=== PATIENT | male | born 1930 | race Caucasian/White ===

== ENCOUNTER → 2017-08-06 | Outpatient (CLI) | payer OTHER ==
[~2017-08-06] MED LIST: AMT50 PO; ASPI81TA28 PO; ATOR-14 PO; CHOL100010 PO; FURO40TA3 PO; IMDSR30 PO; LEVO75TA5 PO; LORA-741 PO; METO50TA16 PO; MULT-506 PO; OMEP20CA9 PO; TAMS0.4C38 PO
--- NOTE | 2017-08-15 09:23 | CODING QUERY MEDICAL NECESSITY ---
SUPPORTING DIAGNOSIS NEEDED A supporting diagnosis is required for the test/procedure performed on this patient in order for us to be reimbursed by the patient's insurance. Please provide a supporting diagnosis for the following test/procedure listed below next to the test name along with your signature. *If there is no additional diagnosis for this patient that would support the following test/procedure please document that below next to the test/procedure. Test(s)/Procedure(s) that require a supporting diagnosis: * PSA DIAGNOSIS: Provider Signature: Date: Thank you Kayla Dawson [employer] Once completed, please kindly fax back to [phone] For questions please call [phone]
== END | disposition home or self-care (01) ==
LOC: C.LAB1850 10:42
PROVIDERS: ATTEND Urology
DX: R39.9 Unspecified symptoms and signs involving the genitourinary system (principal)

== ENCOUNTER → 2017-09-12 | Outpatient (CLI) | payer OTHER ==
[2017-09-12 14:51] LABS: ESTIMATED AVERAGE GLUCOSE 166 mg/dl; HA1C FLAG Normal (Normal)
[2017-09-12 15:15] LABS: BLOOD UREA NITROGEN 16 mg/dl (7-18); BUN/CREATININE RATIO 12.6 (10-20); CALCIUM 8.5 mg/dl (8.5-10.1); CARBON DIOXIDE 27 mmol/L (21-32); CHLORIDE 105 mmol/L (98-107); CREATININE 1.26 mg/dl (0.60-1.40); GLUCOSE 213 mg/dl (70-99); SODIUM 139 mmol/L (136-145)
== END | disposition home or self-care (01) ==
LOC: C.LAB1850 12:49
PROVIDERS: ATTEND Family Medicine
DX: I10 Essential (primary) hypertension (principal); E11.9 Type 2 diabetes mellitus without complications

== ENCOUNTER → 2017-10-24 | Outpatient (CLI) | payer OTHER ==
[2017-10-24 13:44] LABS: CHOLESTEROL/HDL RATIO 2.1
== END | disposition home or self-care (01) ==
LOC: C.LABBFT 09:05
PROVIDERS: ATTEND Physician Assistant
DX: E78.5 Hyperlipidemia, unspecified (principal)

== ENCOUNTER → 2018-01-23 | Outpatient (CLI) | payer OTHER ==
[2018-01-23 12:41] LABS: HEMOGLOBIN A1C 7.4 % (4.5-5.6)
[2018-01-23 12:44] LABS: BLOOD UREA NITROGEN 18 mg/dl (7-18); CALCIUM 8.9 mg/dl (8.5-10.1); CARBON DIOXIDE 28 mmol/L (21-32); CREATININE 1.33 mg/dl (0.60-1.40); GLUCOSE 121 mg/dl (70-99); POTASSIUM 3.6 mmol/L (3.5-5.1); SODIUM 142 mmol/L (136-145)
== END | disposition home or self-care (01) ==
LOC: C.LABBFT 08:32
PROVIDERS: ATTEND Family Medicine
DX: E11.9 Type 2 diabetes mellitus without complications (principal)

== ENCOUNTER → 2018-02-24 | Outpatient (CLI) | payer OTHER ==
[2018-02-24 14:32] LABS: BLOOD UREA NITROGEN 19 mg/dl (7-18); CARBON DIOXIDE 27 mmol/L (21-32); CREATININE 1.18 mg/dl (0.60-1.40); GLUCOSE 164 mg/dl (70-99); POTASSIUM 3.8 mmol/L (3.5-5.1); SODIUM 140 mmol/L (136-145)
== END | disposition home or self-care (01) ==
LOC: C.LAB 10:01
PROVIDERS: ATTEND Nurse Practitioner Adult Health
DX: N45.1 Epididymitis (principal)

== ENCOUNTER → 2018-02-25 | Outpatient (CLI) | payer OTHER ==
--- NOTE | 2018-02-25 11:09 | DIAGNOSTIC IMAGING REPORT ---
(TESTICULAR) SCROTUM-CONT CLINICAL HISTORY: 87 years-old Male presenting with N45.1 [id number]. TECHNIQUE: Real-time grayscale and color and spectral Doppler ultrasound imaging of the scrotum was performed. COMPARISON: 01/22/2012. FINDINGS: Right testis: Normal echogenicity and echotexture. Testis measures 5.4 x 3.2 x 3.5 cm. Normal color Doppler flow and arterial and venous waveforms in the testicular parenchyma. 5 mm anechoic epididymal head cyst versus spermatocele. Trace hydrocele. No varicocele. Left testis: Normal echogenicity and echotexture. Testis measures 4.9 x 3.9 x 2.6 cm. Normal color Doppler flow and arterial and venous waveforms in the testicular parenchyma. 5 mm anechoic epididymal head cyst versus spermatocele. The left epididymal body and tail are prominent and hyperemic. Moderate hydrocele, which is simple appearing. No varicocele. Asymmetric hyperemia of the left testis. IMPRESSION: Findings suggest left epididymitis-orchitis. No evidence of testicular torsion. Reactive moderate left hydrocele. Electronically signed by: Rahul Plunkett M.D. 02/25/2018 11:08 AM Dictated Date/Time: 02/25/2018 11:06 AM
== END | disposition home or self-care (01) ==
LOC: C.ULTRBC 09:08
PROVIDERS: ATTEND Nurse Practitioner Adult Health
DX: N45.1 Epididymitis (principal); N43.3 Hydrocele, unspecified

== ENCOUNTER 2018-03-13 18:00 | Emergency (ER) | payer OTHER ==
[~2018-03-13] VITALS: Ht 172.7 cm; Wt 101.0 kg
[2018-03-13 18:10] VITALS: TEMP 36.7; Ht 172.7 cm; Wt 101.0 kg
[2018-03-13 19:55] VITALS: BP 154/100; PULSE 73; O2SAT 94
--- NOTE | 2018-03-13 21:12 | DIAGNOSTIC IMAGING REPORT ---
L VENOUS DOPPLER UPR EXT UNIL HISTORY: 88 years-old Male picc line was in place, pain acute left upper extremity pain with left-sided PICC COMPARISON: Chest radiograph 12/30/2017 TECHNIQUE: Multiple real-time sonographic images of the left upper extremity deep venous structures were obtained assessing grayscale appearance, color and spectral flow FINDINGS: There is normal flow, compressibility, and phasicity of the left upper extremity deep venous structures. IMPRESSION: No sonographic evidence of deep venous thrombosis. The above report was generated using voice recognition software. It may contain grammatical, syntax or spelling errors. Electronically signed by: Cameron Nguyen M.D. 03/13/2018 9:11 PM Dictated Date/Time: 03/13/2018 9:10 PM
[2018-03-13] MEDS ORDERED: ISOS30TA3 PO (22:04)
[2018-03-13] MEDS ORDERED: LYR/50 PO (22:04)
[2018-03-13] MEDS ORDERED: METF500T5 PO (22:04)
[2018-03-13] MEDS ORDERED: ATOR-22 PO (22:04)
[2018-03-13] MEDS ORDERED: JNV100 PO (22:04)
[2018-03-13] MEDS ORDERED: CLOTLOT2 PO (22:04)
[2018-03-13] MEDS ORDERED: CHOL1TAB76 PO (22:04)
[2018-03-13] MEDS ORDERED: LSX20 PO (22:04)
[2018-03-13] MEDS ORDERED: MIRA1TAB3 PO (22:04)
--- NOTE | 2018-03-13 23:33 | EMERGENCY ROOM VISIT NOTE ---
History Report prepared by Ramiro: Javier Meza Under the Supervision of: Dr. Aroldo Barrett M.D. First contact with patient: 19:20 Chief Complaint: ARM PAIN Stated Complaint: INFECTION History of Present Illness The patient is an 88 year old male who presents to the Emergency Room with complaints of constant left arm pain beginning today. The patient states that he was having left testicle swelling and warmth recently, which his urologist believed might be an infection. He notes that he was prescribed an antibiotic that was given to him through a PICC line in his left arm. Today was his last IV dose and it was difficult for the medication to infuse and it did cause some burning-the PICC line was removed after the dose was administered. He reports that he has since been experiencing left arm pain and burning. The patient states that he also came to the emergency department for his testicle. He notes that his left testicle is no longer warm but is still swollen. Source of History: patient Onset: today Position: arm (left) Quality: burning Timing: constant Note: The patient also complains of left testicular swelling. Review of Systems See HPI for pertinent positives & negatives. A total of 10 systems reviewed and were otherwise negative. Past Medical & Surgical Medical Problems: (1) Infection Family History No pertinent family history stated. Social History Smoking Status: Never Smoker Marital Status: Housing Status: lives with family Occupation Status: retired Current/Historical Medications Scheduled Amitriptyline Hcl (Elavil), 20 MG PO HS Aspirin (Aspirin Ec), 81 MG PO DAILY Atorvastatin (Lipitor), 20 MG PO DAILY Cholecalciferol (D 1999), 2,000 UNITS PO DAILY Clotrimazole W/ Betamethasone (Clotrimazole/Betamethason), 1 APPLN PO BID Furosemide (Furosemide), 20 MG PO DAILY Isosorbide Mononitrate Ext Rel (Imdur Ext Rel), 30 MG PO QAM Levothyroxine Sodium (Levothyroxine Sodium), 1 TAB PO DAILY Metformin Hcl Er (Glucophage Er), 500 MG PO BID Metoprolol Tartrate (Lopressor) (Lopressor), 75 MG PO BID Mirabegron (Myrbetriq Er), 50 MG PO DAILY Omeprazole (Prilosec), 20 MG PO DAILY Pregabalin (Lyrica), 50 MG PO TID Sitagliptin (Januvia), 100 MG PO DAILY Tamsulosin Hcl (Flomax), 0.4 MG PO DAILY Scheduled PRN Lorazepam (Ativan), 0.5 MG PO BID PRN for Anxiety/Agitation Allergies Coded Allergies: No Known Allergies (Verified , 02/27/18) Physical Exam Vital Signs Date Time Temp Pulse Resp B/P (MAP) Pulse Ox O2 Delivery O2 Flow Rate FiO2 03/13/18 21:35 03/13/18 19:55 73 22 154/100 94 Room Air 03/13/18 18:10 36.7 74 18 154/90 94 Room Air Physical Exam GENERAL: Patient is in no acute distress. HEENT: No acute trauma, normocephalic atraumatic, mucous membranes moist, no nasal congestion, no scleral icterus. NECK: No stridor, no adenopathy, no meningismus, trachea is midline. LUNGS: Clear to auscultation bilaterally, no wheeze, no rhonchi, breath sounds equal. HEART: 3/6 systolic murmur with a regular rate and rhythm. ABDOMEN: Soft, nontender, bowel sounds positive, no hernias, no peritonitis. EXTREMITIES: No cyanosis, full range of motion of all the joints without pain or difficulty, no signs for acute trauma, obvious left medial bicep PICC line wound without signs of surrounding cellulitis, no cord felt, area is mildly tender, no drainage, mild bilateral pedal edema. NEUROLOGIC: Oriented x 3, no acute motor or sensory deficits, no focal weakness. SKIN: No rash, no jaundice, no diaphoresis. Groin: No scrotal cellulitis or pain with palpation, left testicle larger than right. Medical Decision & Procedures ER Provider Diagnostic Interpretation: Radiology results as stated below per my review and radiologist interpretation: L VENOUS DOPPLER UPR EXT UNIL FINDINGS: There is normal flow, compressibility, and phasicity of the left upper extremity deep venous structures. IMPRESSION: No sonographic evidence of deep venous thrombosis. The above report was generated using voice recognition software. It may contain grammatical, syntax or spelling errors. Electronically signed by: Cameron Nguyen M.D. 03/13/2018 9:11 PM ED Course 1926: The patient was evaluated in room B12. A complete history and physical exam was performed. 2135: Reevaluated the patient. Discussed results and discharge instructions: he verbalized understanding and agreement. The patient is ready for discharge. Medical Decision Differential diagnoses include: upper extremity DVT, cellulitis, vein irritation , scrotal cellulitis, orchitis, and abscess. Patient presents with pain in the area of his left arm PICC line site. On exam , there was no cellulitis, no drainage. An ultrasound of the left upper extremity was done, there was no acute DVT. I did evaluate the patient's scrotum, there is no erythema or evidence for ongoing cellulitis. The left testicle is more swollen than the right. The patient was reassured by his ultrasound results. He will be discharged to keep a watch on the area for the start of cellulitis. He will follow with his urologist for the increased swelling of the left testicle. The patient was discharged home. I suspect the left upper extremity vein is just irritated from the recent PICC line. Blood Pressure Screening Patient's blood pressure: Elevated blood pressure Blood pressure disposition: Referred to PCP Impression Primary Impression: Arm pain, left Additional Impression: S/P PICC central line placement Scribe Attestation The scribe's documentation has been prepared under my direction and personally reviewed by me in its entirety. I confirm that the note above accurately reflects all work, treatment, procedures, and medical decision making performed by me. Departure Information Dispostion Home / Self-Care Referrals Jhonny Moore M.D. (PCP) Forms HOME CARE DOCUMENTATION FORM, IMPORTANT VISIT INFORMATION Patient Instructions My [facility] Additional Instructions warm compresses keep dressing in place for a few days watch for infection--redness, fever, drainage no clot today by ultrasound Problem Qualifiers
== END 2018-03-13 21:36 | disposition home or self-care (01) ==
LOC: C.EDB 18:02
DX: M79.602 Pain in left arm (principal); Z98.890 Other specified postprocedural states; Z79.82 Long term (current) use of aspirin; Z79.899 Other long term (current) drug therapy

== ENCOUNTER → 2018-03-25 | Outpatient (CLI) | payer OTHER ==
[~2018-03-25] MED LIST changes: -ATOR-14 PO; +ATOR-22 PO; -CHOL100010 PO; +CHOL1TAB76 PO; +CLOTLOT2 PO; -FURO40TA3 PO; -IMDSR30 PO; +ISOS30TA3 PO; +JNV100 PO; +LSX20 PO; +LYR/50 PO; +METF500T5 PO; +MIRA1TAB3 PO; -MULT-506 PO
[2018-03-25 16:49] LABS: BLOOD UREA NITROGEN 15 mg/dl (7-18); CALCIUM 8.6 mg/dl (8.5-10.1); CARBON DIOXIDE 27 mmol/L (21-32); CREATININE 1.21 mg/dl (0.60-1.40); GLUCOSE 153 mg/dl (70-99); POTASSIUM 3.7 mmol/L (3.5-5.1); SODIUM 141 mmol/L (136-145)
[2018-03-25 16:53] LABS: CHOLESTEROL 85 mg/dl (0-200); LDL CHOLESTEROL CALCULATED 27 mg/dl
[2018-03-26 06:09] LABS: HEMOGLOBIN A1C 6.3 % (4.5-5.6)
== END | disposition home or self-care (01) ==
LOC: C.LABBFT 11:15
PROVIDERS: ATTEND Family Medicine
DX: E11.69 Type 2 diabetes mellitus with other specified complication (principal); E78.2 Mixed hyperlipidemia

== ENCOUNTER 2018-12-01 12:54 | Inpatient (IN) ==
[2018-12-01] MEDS ORDERED: ACETAMINOPHEN 325 MG TAB PO STA (13:19)
[2018-12-01] MEDS ORDERED: SODIUM CHLORIDE 0.9% 500 ML IV SCH (13:30)
--- NOTE | 2018-12-01 13:38 | Emergency Department Note ---
ED Provider Note CHIEF COMPLAINT: Fever/chills, cough HISTORY OF PRESENTING ILLNESS: This is an 88-year-old male who presents to the emergency department via EMS with complaint of fevers and chills that started yesterday. Patient states that he had some chills and feeling cold yesterday but did not check his temperature at that time. This morning he was feeling better and he went to his physical therapy appointment, but then the chills started to come back and he was found to have a fever. He has been feeling slightly short of breath and has been having a cough which he states is productive at times of a grayish white sputum. He denies coughing up blood. He denies any chest pain, palpitations, dizziness or syncope. Patient's states that she noticed he has also had some dark, foul-smelling urine since yesterday. He reports that he had arthroscopic left shoulder surgery about a month ago, and he states he has been doing very well and the incisions have healed nicely. He does note that he has had a flu shot this year and had a pneumonia shot last year. His states they have been around several sick contacts, mostly with GI symptoms. Neither of them have been sick with those symptoms. Patient denies any nausea, vomiting, or diarrhea. He denies any abdominal pain. Denies any dysuria or hematuria, urinary frequency or hesitancy. Denies any unusual rash. REVIEW OF SYSTEMS: A complete 10 point review of systems was reviewed with the patient with pertinent positives and negatives as per history of present illness. All else were negative. PAST MEDICAL HISTORY: The coronary artery disease, hypertension, type 2 diabetes , hypothyroidism, GERD, hyperlipidemia SOCIAL HISTORY: Lives at home with his , denies tobacco use ALLERGIES: No known allergies PHYSICAL EXAM: CONSTITUTIONAL: Pleasant and cooperative. Nontoxic appearing and in no acute distress. Moderately dehydrated. HEENT: Normocephalic, atraumatic. PERRL, EOMI. TMs normal bilaterally. Pharynx normal. Dry mucous membranes. NECK: Supple, full active range of motion without discomfort. No cervical adenopathy. No nuchal rigidity. RESPIRATORY: Diminished in the bases with fine crackles, otherwise clear with no wheezing, rhonchi, or stridor. Equal expansion bilaterally. CARDIOVASCULAR: Regular rate and rhythm. 3/6 systolic murmur, no rubs or gallops. Normal peripheral perfusion, 2+ distal pulses in all 4 extremities. No edema. GASTROINTESTINAL: Soft, nontender throughout, mildly distended, obese abdomen. No rebound tenderness or guarding. No palpable masses or HSM. Bowel sounds present in all quadrants. No CVA tenderness bilaterally. MUSCULOSKELETAL: Left arm is in a sling. Arthroscopic surgical incisions of the left shoulder appear to be well-healed, no erythema, swelling, tenderness, or drainage. Full range of motion of all joints without discomfort. INTEGUMENTARY: No rash or other significant dermatologic conditions noted. NEUROLOGIC: Alert and oriented X 4 with normal affect. Normal strength and sensation in all 4 extremities. Normal speech. ED COURSE AND MEDICAL DECISION MAKING: CC: Patient presenting with complaint of fever/chills, cough DIFFERENTIAL DIAGNOSIS: Includes, but not limited to viral URI, bronchitis, pneumonia, COPD, CHF exacerbation, UTI, pyelonephritis, influenza, cholecystitis , pancreatitis, sepsis/bacteremia, dehydration, electrolyte abnormality, among others. INTERPRETATION OF LABS: No leukocytosis, no anemia, mild thrombus cytopenia, no significant electrolyte abnormalities, moderately elevated BUN and creatinine ( increased from baseline), significantly elevated total bilirubin and liver enzymes, significant the elevated lipase. Lactic acid is elevated, procalcitonin is elevated. UA appears consistent with UTI. Influenza A/B negative. IMAGING: XR chest 1V portable CLINICAL HISTORY: cough, fever, sob COMPARISON STUDY: 10/30/2018 FINDINGS: The examination was performed in apical lordotic fashion. The study is mildly rotated. There are postsurgical changes of a midline sternotomy. Hazy opacities the left lung base, likely related to radiographic technique. There is no lobar consolidation. There is no overt failure. There are no significant pleural effusions. IMPRESSION: Technically limited portable study. No acute findings. ----- CT ANGIOGRAM OF THE CHEST; CT SCAN OF THE ABDOMEN AND PELVIS WITH IV CONTRAST CLINICAL HISTORY: Cough and dyspnea. Fever. Elevated hepatic transaminases. COMPARISON STUDY: Chest CT dated 07/04/2015. Abdominal CT dated 03/06/2008. Chest x-ray dated 12/01/2018. TECHNIQUE: Following the IV administration of 95 of Optiray 320, CT angiogram of the chest is performed from the upper abdomen to the thoracic inlet utilizing the pulmonary embolus protocol. Images are reviewed in the axial, sagittal, coronal planes. 3-D MIPS images are created and assessed. Subsequently , CT scan of the abdomen and pelvis was performed from the lung bases to the proximal femora. Images are reviewed in the axial, sagittal, and coronal planes. IV contrast was administered without complication. A dose lowering technique was utilized adhering to the principles of ALARA. The examination is degraded by motion artifact, as well as by streak artifact from the arms which could not be elevated above the chest or abdomen. CT DOSE: 1948.54 mGy.cm FINDINGS: CHEST: Thyroid: Atrophic. Thoracic aorta: There is atherosclerotic calcification of the thoracic aorta, which is normal in caliber and demonstrates standard 3-vessel arch anatomy. No dissection is seen. Pulmonary vasculature: The main pulmonary arteries are dilated suggesting pulmonary artery hypertension. There are no filling defects identified in the main, lobar, or proximal segmental pulmonary arteries to indicate pulmonary embolus. Evaluation of the majority of the segmental and subsegmental branches is degraded by motion artifact. Heart: The patient is status post midline sternotomy. The heart is enlarged and without pericardial effusion. The coronary arteries are densely calcified. Lungs and pleural spaces: Evaluation of the lung parenchyma is degraded by motion artifact. Mild emphysematous change is noted. There are trace pleural effusions. There is patchy airspace consolidation at the left lung base. Mild opacities are also seen at the right lung base. The trachea and central airways appear patent. There are scattered calcified granulomas. Mediastinum: There is no mediastinal lymphadenopathy. Janet: Clear. Axillae: There is no axillary lymphadenopathy. Bony thorax: The skeletal structures are heterogeneously osteopenic. Degenerative changes noted in the shoulders and thoracic spine. No lytic or blastic lesions are clearly identified. ABDOMEN AND PELVIS: Liver: The contrast-enhanced liver is normal in size, contour, and attenuation. There is no intrahepatic or ductal dilatation. The hepatic veins and portal veins are patent. Gallbladder: The gallbladder is distended. The gallbladder wall is thickened, edematous, and hyperemic. Pericholecystic stranding is noted in the appearance is consistent with acute cholecystitis. Spleen: Normal in size and attenuation. There are scattered calcified splenic granulomas. Pancreas: Atrophic and grossly unremarkable. Adrenal glands: Unremarkable. Kidneys: The contrast enhanced kidneys are atrophic and without hydronephrosis. The kidneys enhance symmetrically. 2 left renal cysts measure up to 3.4 cm. Abdominal vasculature: The abdominal aorta is normal in course and caliber noting advanced atherosclerotic calcification. Stomach and bowel: There is a small hiatal hernia. The duodenum is normal in configuration. Prominent fluid-filled loops of small bowel in the right mid abdomen measure up to 3.2 cm diameter. There is no evidence of obstruction, and this may represent a mild ileus. A small duodenal diverticulum is noted. There is mild to moderate colonic diverticulosis without CT evidence of acute diverticulitis. Moderate colonic fecal retention is observed. The appendix is well-visualized and normal. Peritoneum: There is no intraperitoneal free air or abdominal ascites. Lymphadenopathy: None. Pelvic viscera: The prostate gland is diminutive and heterogeneous noting brachytherapy seeds in place. The bladder is mildly distended and grossly unremarkable. 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 Skeletal structures: The skeletal structures are heterogeneously osteopenic. There is moderate lumbosacral spondylosis. No lytic or blastic lesions are clearly seen. IMPRESSION: 1. Streak and motion compromised examination. 2. There is no evidence of central pulmonary embolus in the main, lobar, or proximal segmental pulmonary arteries. Evaluation of the peripheral branches is severely compromised by streak and motion artifact. 3. Findings are consistent with acute cholecystitis. Surgical consultation is advised. 4. Cardiomegaly and mild emphysema. 5. There are patchy airspace opacities at both lung bases, left greater than left. The appearance suggests a mild infectious/inflammatory pneumonitis. Clinical correlation will be required. 6. There are mildly distended and fluid-filled loops of small bowel in the right mid abdomen. There is no evidence of mechanical obstruction, and this may represent ileus secondary to cholecystitis. Clinical correlation will be required. 7. Mild to moderate colonic diverticulosis without CT evidence of acute diverticulitis. 8. Additional findings as above. EKG: Shows normal sinus rhythm with rate of 82 bpm, left axis deviation, normal intervals, no acute ST or T wave changes, no ectopy, no significant change when compared to previous EKG from 10/30/2018 by my interpretation. MEDICATION RECONCILIATION: I attest that I have personally reviewed the patient 's current medication list. INITIAL VITAL SIGNS REVIEW: I reviewed the patient's initial vital signs and interpret them as follows: T: Febrile; BP: Normotensive; HR: Mildly tachycardic; RR: Within normal limits; Pulse Ox: Hypoxic on room air. Blood pressure screening: The patient was found to have normal blood pressure on screening and does not require follow-up for repeat blood pressure check. MDM SUMMARY: Patient was evaluated at bedside, history and physical exam performed. Patient is alert and oriented, in no acute distress, resting calmly in the stretcher. He is noted to be febrile and hypoxic on room air, was placed on 2 L nasal cannula with good improvement in oxygenation. He is nontoxic in appearance, but does appear to be moderately dehydrated clinically. Orders were placed at bedside for labs, UA and urine culture, blood cultures x2 , lactic acid, 500 mL IV fluid bolus for hydration, EKG, chest x-ray to evaluate for cardiopulmonary abnormality. P.o. Tylenol for fever. Patient discussed with Dr. Wiseman, who agrees with my assessment, plan, and disposition. Labs and imaging reviewed as above, labs are notable for elevated lactic acid and pro-calcitonin, mild DARIUS, and significant elevation of LFTs. UTI suspicious for UTI. EKG and chest x-ray are unremarkable. Given the patient's shortness of breath, hypoxia, and recent surgery, I did feel that a CTA of the chest was reasonable to evaluate for PE. CT of the abdomen and pelvis was also performed given the significant elevation of LFTs. CT imaging notable for findings consistent with acute cholecystitis, which would correlate with the elevated liver enzymes. No evidence for PE. The patient was covered with 4.5 g IV Zosyn. An additional 1 L IV fluid bolus was also ordered for hydration. I spoke on the phone with Dr. Elizondo, general surgery, who felt that the patient should also be evaluated by GI for possible cholangitis or biliary obstruction. He did agree to evaluate the patient for consult. I did also speak on the phone with Dr. Tovar, gastroenterology, who recommended the patient have an MRCP this evening, with possible plans for an ERCP tomorrow. The patient will be admitted to medicine. I spoke with Dr. De Los Santos, [facility] Hospitalist service, he agrees to evaluate the patient for admission. Patient reassessed multiple times throughout ED stay, he has remained hemodynamically stable, fever and tachycardia downtrending with the above treatments, he remains on 2 L oxygen. Patient and his family were updated on all results and plan for admission, they verbalized understanding and were agreeable to this plan. The patient was stable at time of admission. The chart was completed utilizing [employer] Speech voice recognition software. Grammatical errors, random word insertions, pronoun errors, and incomplete sentences are an occasional consequence of this system due to software limitations, ambient noise, and hardware issues. Any formal questions or concerns about the content, text, or information contained within the body of this dictation should be directly addressed to the nurse practitioner for clarification. Impression & Plan Acute cholecystitis, Gallstone pancreatitis, Acute febrile illness Past Med/Surg History Social History Current Living Situation: Spouse Other Information That Helps Us Care for You: No Feels Safe at Home: Yes Safety Concerns: Feels Safe At This Time Smoking Status: Former smoker Hx Alcohol Use: Yes Alcohol type: beer Alcohol Intake Frequency: holidays/ special occasions only Hx Substance Use: No Beliefs That Will Affect Care: None Preferred Language: Bulgarian Communication Ability: Effective Shank Inspector Required: No Results & Data Vital Signs Vital Signs - 24 hr 12/01/18 13:04 12/01/18 13:55 12/01/18 14:54 Temperature 39.4 C H Temperature Source Oral Sepsis Recent Fever Within 48 Hours Yes Sepsis New/Unexplained Change in Mental Status No Sepsis Action Taken by Nursing No Action Required Pulse Rate 91 H Pulse Rate [Finger] 85 78 Respiratory Rate 16 18 16 Respiratory Effort / Characteristics Respiratory Depth Respiratory Pattern Blood Pressure 115/64 Blood Pressure [Right Arm] 102/55 L 120/65 Blood Pressure Mean 81 Blood Pressure Mean [Right Arm] 70 83 Blood Pressure Position [Right Arm] Pulse Oximetry 88 L 94 94 Oxygen Delivery Method Room Air Nasal Cannula Nasal Cannula Oxygen Flow Rate 2 2 12/01/18 16:11 12/01/18 17:20 12/01/18 18:50 Temperature 37.0 C Temperature Source Oral Sepsis Recent Fever Within 48 Hours Sepsis New/Unexplained Change in Mental Status Sepsis Action Taken by Nursing Pulse Rate 76 Pulse Rate [Finger] 76 75 Respiratory Rate 17 16 20 Respiratory Effort / Characteristics Respiratory Depth Respiratory Pattern Blood Pressure 126/79 Blood Pressure [Right Arm] 121/68 126/79 Blood Pressure Mean Blood Pressure Mean [Right Arm] 85 94 Blood Pressure Position [Right Arm] Pulse Oximetry 93 94 93 Oxygen Delivery Method Room Air Room Air Room Air Oxygen Flow Rate 12/01/18 19:30 Temperature 36.9 C Temperature Source Oral Sepsis Recent Fever Within 48 Hours Sepsis New/Unexplained Change in Mental Status Sepsis Action Taken by Nursing Pulse Rate Pulse Rate [Finger] 74 Respiratory Rate 20 Respiratory Effort / Characteristics Non-Labored Spontaneous Respiratory Depth Normal Respiratory Pattern Regular Blood Pressure Blood Pressure [Right Arm] 144/86 H Blood Pressure Mean Blood Pressure Mean [Right Arm] 105 Blood Pressure Position [Right Arm] Sitting Pulse Oximetry 92 Oxygen Delivery Method Room Air Oxygen Flow Rate Laboratory Data Result diagrams: 12/01/18 13:39 12/01/18 13:39 Lab Results 12/01/18 12/01/18 12/01/18 Range/Units 13:15 13:39 13:39 WBC 10.02 (4.8-10.8) K/uL RBC 4.68 L (4.7-6.1) M/uL Hgb 15.0 (14.0-18.0) g/dL Hct 44.6 (42-52) % MCV 95.3 (80-100) fL MCH 32.1 (25-34) pg MCHC 33.6 (32-36) g/dL RDW Std Deviation 46.2 (36.4-46.3) fL RDW Coeff of Malcolm 13.5 (11.5-14.5) % Plt Count 125 L (130-400) K/uL MPV 11.0 H (7.4-10.4) fL Immature Gran % (Auto) 0.3 % Neut % (Auto) 87.2 % Lymph % (Auto) 4.4 % [place] % (Auto) 7.9 % Eos % (Auto) 0.1 % Baso % (Auto) 0.1 % Immature Gran # (Auto) 0.03 H (0.00-0.02) K/uL Neut # (Auto) 8.74 H (1.4-6.5) K/uL Lymph # (Auto) 0.44 L (1.2-3.4) K/uL [place] # (Auto) 0.79 H (0.11-0.59) K/uL Eos # (Auto) 0.01 (0-0.5) K/uL Baso # (Auto) 0.01 (0-0.2) K/uL Sodium 139 (136-145) mmol/L Potassium 3.5 (3.5-5.1) mmol/L Chloride 106 (98-107) mmol/L Carbon Dioxide 24 (21-32) mmol/L Anion Gap 9.0 (3-11) BUN 22 H (7-18) mg/dl Creatinine 1.61 H (0.6-1.4) mg/dl Est Cr Clr Drug Dosing 36.9 ml/min Est GFR ( Amer) 43.9 Est GFR (Non-Af Amer) 37.9 BUN/Creatinine Ratio 13.8 (10-20) Glucose 166 H (70-99) mg/dl POC Glucose (70-99) Lactate (0.4-2.0) mmol/L Calcium 8.5 (8.5-10.1) mg/dl Total Bilirubin 5.8 H (0.2-1) mg/dl AST 319 H (15-37) U/L ALT 388 H (12-78) U/L Alkaline Phosphatase 239 H (45-117) U/L Total Protein 5.9 L (6.4-8.2) gm/dl Albumin 3.0 L (3.4-5.0) gm/dl Globulin 2.9 (2.5-4.0) gm/dl Albumin/Globulin Ratio 1.0 (0.9-2) Lipase (73-393) U/L Procalcitonin (0-0.5) ng/ml Urine Color Dark Yellow Urine Appearance Cloudy H (Clear) Urine pH 6.0 (4.5-7.5) Ur Specific [place] 1.012 (1.000-1.030) Urine Protein Negative (Negative) Urine Glucose (UA) Negative (Negative) Urine Ketones Negative (Negative) Urine Blood Negative (Negative) Urine Nitrite Positive H (Negative) Urine Bilirubin 1+ H (Negative) Urine Urobilinogen Negative (Negative) Ur Leukocyte Esterase Trace H (Negative) Urine WBC (Auto) 5-10 H (0-5) /hpf Urine RBC (Auto) 0-4 (0-4) /hpf U Hyaline Cast (Auto) 0 (0-5) /lpf U Epithel Cells (Auto) 0-5 (0-5) /lpf Urine Bacteria (Auto) 4+ H (Negative) Influenza Type A Ag (Neg) Influenza Type B Ag (Neg) 12/01/18 12/01/18 12/01/18 Range/Units 13:39 13:39 13:39 WBC (4.8-10.8) K/uL RBC (4.7-6.1) M/uL Hgb (14.0-18.0) g/dL Hct (42-52) % MCV (80-100) fL MCH (25-34) pg MCHC (32-36) g/dL RDW Std Deviation (36.4-46.3) fL RDW Coeff of Malcolm (11.5-14.5) % Plt Count (130-400) K/uL MPV (7.4-10.4) fL Immature Gran % (Auto) % Neut % (Auto) % Lymph % (Auto) % [place] % (Auto) % Eos % (Auto) % Baso % (Auto) % Immature Gran # (Auto) (0.00-0.02) K/uL Neut # (Auto) (1.4-6.5) K/uL Lymph # (Auto) (1.2-3.4) K/uL [place] # (Auto) (0.11-0.59) K/uL Eos # (Auto) (0-0.5) K/uL Baso # (Auto) (0-0.2) K/uL Sodium (136-145) mmol/L Potassium (3.5-5.1) mmol/L Chloride (98-107) mmol/L Carbon Dioxide (21-32) mmol/L Anion Gap (3-11) BUN (7-18) mg/dl Creatinine (0.6-1.4) mg/dl Est Cr Clr Drug Dosing ml/min Est GFR ( Amer) Est GFR (Non-Af Amer) BUN/Creatinine Ratio (10-20) Glucose (70-99) mg/dl POC Glucose (70-99) Lactate 3.2 H* (0.4-2.0) mmol/L Calcium (8.5-10.1) mg/dl Total Bilirubin (0.2-1) mg/dl AST (15-37) U/L ALT (12-78) U/L Alkaline Phosphatase (45-117) U/L Total Protein (6.4-8.2) gm/dl Albumin (3.4-5.0) gm/dl Globulin (2.5-4.0) gm/dl Albumin/Globulin Ratio (0.9-2) Lipase 4926 H (73-393) U/L Procalcitonin 1.65 H (0-0.5) ng/ml Urine Color Urine Appearance (Clear) Urine pH (4.5-7.5) Ur Specific [place] (1.000-1.030) Urine Protein (Negative) Urine Glucose (UA) (Negative) Urine Ketones (Negative) Urine Blood (Negative) Urine Nitrite (Negative) Urine Bilirubin (Negative) Urine Urobilinogen (Negative) Ur Leukocyte Esterase (Negative) Urine WBC (Auto) (0-5) /hpf Urine RBC (Auto) (0-4) /hpf U Hyaline Cast (Auto) (0-5) /lpf U Epithel Cells (Auto) (0-5) /lpf Urine Bacteria (Auto) (Negative) Influenza Type A Ag (Neg) Influenza Type B Ag (Neg) 12/01/18 12/01/18 Range/Units 14:00 20:25 WBC (4.8-10.8) K/uL RBC (4.7-6.1) M/uL Hgb (14.0-18.0) g/dL Hct (42-52) % MCV (80-100) fL MCH (25-34) pg MCHC (32-36) g/dL RDW Std Deviation (36.4-46.3) fL RDW Coeff of Malcolm (11.5-14.5) % Plt Count (130-400) K/uL MPV (7.4-10.4) fL Immature Gran % (Auto) % Neut % (Auto) % Lymph % (Auto) % [place] % (Auto) % Eos % (Auto) % Baso % (Auto) % Immature Gran # (Auto) (0.00-0.02) K/uL Neut # (Auto) (1.4-6.5) K/uL Lymph # (Auto) (1.2-3.4) K/uL [place] # (Auto) (0.11-0.59) K/uL Eos # (Auto) (0-0.5) K/uL Baso # (Auto) (0-0.2) K/uL Sodium (136-145) mmol/L Potassium (3.5-5.1) mmol/L Chloride (98-107) mmol/L Carbon Dioxide (21-32) mmol/L Anion Gap (3-11) BUN (7-18) mg/dl Creatinine (0.6-1.4) mg/dl Est Cr Clr Drug Dosing ml/min Est GFR ( Amer) Est GFR (Non-Af Amer) BUN/Creatinine Ratio (10-20) Glucose (70-99) mg/dl POC Glucose 107 H (70-99) Lactate (0.4-2.0) mmol/L Calcium (8.5-10.1) mg/dl Total Bilirubin (0.2-1) mg/dl AST (15-37) U/L ALT (12-78) U/L Alkaline Phosphatase (45-117) U/L Total Protein (6.4-8.2) gm/dl Albumin (3.4-5.0) gm/dl Globulin (2.5-4.0) gm/dl Albumin/Globulin Ratio (0.9-2) Lipase (73-393) U/L Procalcitonin (0-0.5) ng/ml Urine Color Urine Appearance (Clear) Urine pH (4.5-7.5) Ur Specific [place] (1.000-1.030) Urine Protein (Negative) Urine Glucose (UA) (Negative) Urine Ketones (Negative) Urine Blood (Negative) Urine Nitrite (Negative) Urine Bilirubin (Negative) Urine Urobilinogen (Negative) Ur Leukocyte Esterase (Negative) Urine WBC (Auto) (0-5) /hpf Urine RBC (Auto) (0-4) /hpf U Hyaline Cast (Auto) (0-5) /lpf U Epithel Cells (Auto) (0-5) /lpf Urine Bacteria (Auto) (Negative) Influenza Type A Ag Neg for Influ A (Neg) Influenza Type B Ag Neg for Influ B (Neg) Administered Medications Sodium Chloride (Nss 1000ml) 1,000 mls @ 80 mls/hr IV .[id number] ED Stop: 12/31/18 19:59 Last Admin: 12/01/18 19:30 Dose: 80 mls/hr Discontinued Medications Acetaminophen (Tylenol) 650 mg PO NOW STA Stop: 12/01/18 13:20 Last Admin: 12/01/18 13:53 Dose: 650 mg Sodium Chloride (Nss) 500 mls @ 999 mls/hr IV .Q31M ED Stop: 12/01/18 14:00 Last Infusion: 12/01/18 14:25 Dose: 0 mls/hr Admin: 12/01/18 13:54 Dose: 999 mls/hr Sodium Chloride (Nss 1000ml) 1,000 mls @ 999 mls/hr IV .[id number] ONE Stop: 12/01/18 15:10 Last Infusion: 12/01/18 16:01 Dose: 0 mls/hr Admin: 12/01/18 14:37 Dose: 999 mls/hr Ceftriaxone Sodium (Rocephin) 1,000 mg in 50 mls @ 100 mls/hr IV NOW STA Stop: 12/01/18 14:41 Last Admin: 12/01/18 14:36 Dose: Not Given Piperacillin Sod/Tazobactam Sod (Zosyn) 4.5 gm in 120 mls @ 240 mls/hr IV NOW ONE Stop: 12/01/18 14:59 Last Infusion: 12/01/18 17:14 Dose: 0 mls/hr Admin: 12/01/18 16:01 Dose: 240 mls/hr Insulin Aspart (Novolog Flexpen) 0 units SC Q6H ED Stop: 12/31/18 19:59 Last Admin: 12/01/18 20:40 Dose: Not Given Ioversol (Optiray 320 100ml) 95 ml IV ONCE PRN PRN Reason: Interaction Checking Stop: 12/05/18 15:51 Last Admin: 12/01/18 15:52 Dose: 95 ml Discharge Plan Visit Data *Final* Discharge Date/Time: 12/01/18 18:50 Chief Complaint: Illness Stated Complaint: fever ED Provider: Cassie Wiseman ED Midlevel Provider: Marilu Cha Discharge Problem: Acute cholecystitis, Gallstone pancreatitis, Acute febrile illness Patient Disposition: Admitted As Inpatient Condition: Good Discharge Instructions Interventions: ED Discharge Assessment Last Done: 12/01/18 18:50
[2018-12-01 13:59] LABS: Appearance Urine Cloudy (Clear); Bacteria Urine Automated 4+ (Negative); Cast Urine Automated 0 /lpf (0-5); Color Urine Dark Yellow; Epithelial Cell Urine Auto 0-5 /lpf (0-5); Glucose Urine UA Negative (Negative); Ketones Urine Negative (Negative); Leukocyte Esterase Urine Trace (Negative); Nitrite Urine Positive (Negative); Protein Urine Negative (Negative); Specific Gravity Urine 1.012 (1.000-1.030); Urobilinogen Urine Negative (Negative)
[2018-12-01 14:00] LABS: Basophils # (auto) 0.01 K/uL (0-0.2); Basophils % (auto) 0.1 %; Eosinophils # (auto) 0.01 K/uL (0-0.5); Eosinophils % (auto) 0.1 %; Hematocrit (blood only) 44.6 % (42-52); Immature Granulocytes # (auto) 0.03 K/uL (0.00-0.02); Immature Granulocytes % (auto) 0.3 %; Lymphocytes # (auto) 0.44 K/uL (1.2-3.4); Lymphocytes % (auto) 4.4 %; Mean Corpuscular Hgb Conc 33.6 g/dL (32-36); Mean Corpuscular Volume 95.3 fL (80-100); Monocytes # (auto) 0.79 K/uL (0.11-0.59); Monocytes % (auto) 7.9 %; Neutrophils # (auto) 8.74 K/uL (1.4-6.5); Neutrophils % (auto) 87.2 %; Platelet Count 125 K/uL (130-400); RDW Coefficient of Variation 13.5 % (11.5-14.5); RDW Standard Deviation 46.2 fL (36.4-46.3); Red Blood Count 4.68 M/uL (4.7-6.1); White Blood Count 10.02 K/uL (4.8-10.8)
[2018-12-01 14:04] LABS: Bilirubin Urine 1+ (Negative)
[2018-12-01 14:05] LABS: Ictotest Urine Positive (Negative)
[2018-12-01] MEDS ORDERED: SODIUM CHLORIDE 0.9% 1000ML 1,000 ML IV ONE (14:10)
[2018-12-01] MEDS ORDERED: cefTRIAXone SODIUM 1,000 MG/50 ML BAG IV STA (14:12)
--- NOTE | 2018-12-01 14:13 | XRay Report ---
XR chest 1V portable CLINICAL HISTORY: cough, fever, sob COMPARISON STUDY: 10/30/2018 FINDINGS: The examination was performed in apical lordotic fashion. The study is mildly rotated. Ther e are postsurgical changes of a midline sternotomy. Hazy opacities the left lung base, likely related to radiographic technique. There is no lobar consolidation. There is no overt failure. There are no significant pleural effusions.[ IMPRESSION: Technically limited portable study. No acute findings. Electronically signed by: Ricardo Rogers M.D. 12/01/2018 2:11 PM
[2018-12-01 14:16] LABS: BUN Creatinine Ratio 13.8 (10-20); Calcium 8.5 mg/dl (8.5-10.1); Creatinine Clr Calc Pharmacy 36.9 ml/min; Est GFR (African American) 43.9; Est GFR (Non-African American) 37.9; Potassium 3.5 mmol/L (3.5-5.1)
[2018-12-01 14:20] LABS: Bilirubin,Total 5.8 mg/dl (0.2-1); Globulin 2.9 gm/dl (2.5-4.0); Total Protein 5.9 gm/dl (6.4-8.2)
[2018-12-01] MEDS ORDERED: PIPERACILL/TAZOBAC CONSULT ACTIVE PRN ×2 (14:30→20:00)
[2018-12-01] MEDS ORDERED: PIPERACILLIN/TAZOBACTAM 4.5 GM/120 ML BAG IV ONE (14:30)
[2018-12-01] MEDS ORDERED: IOVERSOL 100ml IV PRN (15:52)
--- NOTE | 2018-12-01 16:29 | CT Scan Report ---
CT ANGIOGRAM OF THE CHEST; CT SCAN OF THE ABDOMEN AND PELVIS WITH IV CONTRAST CLINICAL HISTORY: Cough and dyspnea. Fever. Elevated hepatic transaminases. COMPARISON STUDY: Chest CT dated 07/04/2015. Abdominal CT dated 03/06/2008. Chest x-ray dated 12/01/2018 . TECHNIQUE: Following the IV administration of 95 of Optiray 320, CT angiogram of the chest is perform ed from the upper abdomen to the thoracic inlet utilizing the pulmonary embolus protocol. Images are reviewed in the axial, sagittal, coronal planes. 3-D MIPS images are created and assessed. Subsequent ly, CT scan of the abdomen and pelvis was performed from the lung bases to the proximal femora. Image s are reviewed in the axial, sagittal, and coronal planes. IV contrast was administered without compl ication. A dose lowering technique was utilized adhering to the principles of ALARA. The examination is degraded by motion artifact, as well as by streak artifact from the arms which could not be elevat ed above the chest or abdomen. CT DOSE: 1948.54 mGy.cm FINDINGS: CHEST: Thyroid: Atrophic. Thoracic aorta: There is atherosclerotic calcification of the thoracic aorta, which is normal in yobany juliette and demonstrates standard 3-vessel arch anatomy. No dissection is seen. Pulmonary vasculature: The main pulmonary arteries are dilated suggesting pulmonary artery hypertensi on. There are no filling defects identified in the main, lobar, or proximal segmental pulmonary arter ies to indicate pulmonary embolus. Evaluation of the majority of the segmental and subsegmental branc hes is degraded by motion artifact. Heart: The patient is status post midline sternotomy. The heart is enlarged and without pericardial e ffusion. The coronary arteries are densely calcified. Lungs and pleural spaces: Evaluation of the lung parenchyma is degraded by motion artifact. Mild emph ysematous change is noted. There are trace pleural effusions. There is patchy airspace consolidation at the left lung base. Mild opacities are also seen at the right lung base. The trachea and central a irways appear patent. There are scattered calcified granulomas. Mediastinum: There is no mediastinal lymphadenopathy. Janet: Clear. Axillae: There is no axillary lymphadenopathy. Bony thorax: The skeletal structures are heterogeneously osteopenic. Degenerative changes noted in th e shoulders and thoracic spine. No lytic or blastic lesions are clearly identified. ABDOMEN AND PELVIS: Liver: The contrast-enhanced liver is normal in size, contour, and attenuation. There is no intrahepa tic or ductal dilatation. The hepatic veins and portal veins are patent. Gallbladder: The gallbladder is distended. The gallbladder wall is thickened, edematous, and hyperemi c. Pericholecystic stranding is noted in the appearance is consistent with acute cholecystitis. Spleen: Normal in size and attenuation. There are scattered calcified splenic granulomas. Pancreas: Atrophic and grossly unremarkable. Adrenal glands: Unremarkable. Kidneys: The contrast enhanced kidneys are atrophic and without hydronephrosis. The kidneys enhance s ymmetrically. 2 left renal cysts measure up to 3.4 cm. Abdominal vasculature: The abdominal aorta is normal in course and caliber noting advanced atheroscle rotic calcification. Stomach and bowel: There is a small hiatal hernia. The duodenum is normal in configuration. Prominent fluid-filled loops of small bowel in the right mid abdomen measure up to 3.2 cm diameter. There is n o evidence of obstruction, and this may represent a mild ileus. A small duodenal diverticulum is note d. There is mild to moderate colonic diverticulosis without CT evidence of acute diverticulitis. Mode rate colonic fecal retention is observed. The appendix is well-visualized and normal. Peritoneum: There is no intraperitoneal free air or abdominal ascites. Lymphadenopathy: None. Pelvic viscera: The prostate gland is diminutive and heterogeneous noting brachytherapy seeds in plac e. The bladder is mildly distended and grossly unremarkable. 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 Skeletal structures: The skeletal structures are heterogeneously osteopenic. There is moderate lumbos acral spondylosis. No lytic or blastic lesions are clearly seen. IMPRESSION: 1. Streak and motion compromised examination. 2. There is no evidence of central pulmonary embolus in the main, lobar, or proximal segmental pulmon chato arteries. Evaluation of the peripheral branches is severely compromised by streak and motion bean fact. 3. Findings are consistent with acute cholecystitis. Surgical consultation is advised. 4. Cardiomegaly and mild emphysema. 5. There are patchy airspace opacities at both lung bases, left greater than left. The appearance sug gests a mild infectious/inflammatory pneumonitis. Clinical correlation will be required. 6. There are mildly distended and fluid-filled loops of small bowel in the right mid abdomen. There i s no evidence of mechanical obstruction, and this may represent ileus secondary to cholecystitis. Cli nical correlation will be required. 7. Mild to moderate colonic diverticulosis without CT evidence of acute diverticulitis. 8. Additional findings as above. Electronically signed by: Aroldo Eason M.D. 12/01/2018 4:27 PM
--- NOTE | 2018-12-01 17:16 | Surgery Consultation ---
Date of Consultation December 01, 2018 Assessment & Plan (1) Gallstone pancreatitis: The patient does likely have mild cholecystitis however I think it may be secondary to common bile duct obstruction and gallstone pancreatitis. His total bilirubin and lipase would indicate this. His fever is more likely from cholangitis than severe acute cholecystitis. He will need a GI evaluation and possible ERCP and at some point laparoscopic cholecystectomy. We will obviously repeat his liver function and lipase and he may need an MRCP. If ERCP is required I would likely perform laparoscopic cholecystectomy following the procedure. Continue IV antibiotics. History of Present Illness Reason for Consultation: Cholecystitis History of Present Illness Patient is an 88-year-old male presenting to the emergency room with fever and chills. He apparently also had "cold type" symptoms with mild shortness of breath. On his workup in the emergency room he has an elevated total bilirubin of 5.8, elevated other liver function studies, and a lipase of 4900. His CAT scan shows evidence of gallbladder distention and thickening with edema. His white blood cell count is normal, he is febrile, his heart rate is normal. Currently his family is at the bedside and the patient is in no distress and normally responsive. Allergies Allergy/AdvReac Type Severity Reaction Status Date / Time No Known Allergies Allergy Unknown Verified 12/01/18 14:10 Home Medications Home Medications Medication Instructions Recorded Confirmed Type aspirin [Aspirin Low Dose] 81 mg PO QAM 10/28/18 12/01/18 History atorvastatin 20 mg PO PM 10/28/18 12/01/18 History cholecalciferol (vitamin D3) 4,000 unit PO QAM 10/28/18 12/01/18 History [Vitamin D3] furosemide 20 mg PO QAM 10/28/18 12/01/18 History levothyroxine 75 mcg PO QAM 10/28/18 12/01/18 History lorazepam 0.5 mg PO AMPM 10/28/18 12/01/18 History metoprolol tartrate 50 mg PO AMPM 10/28/18 12/01/18 History omeprazole 40 mg PO QAM 10/28/18 12/01/18 History pregabalin [Lyrica] 50 mg PO AMPM 10/28/18 12/01/18 History sitagliptin [Januvia] 100 mg PO QPM 10/28/18 12/01/18 History tamsulosin 0.4 mg PO QPM 10/28/18 12/01/18 History solifenacin [Vesicare] 10 mg PO QAM 12/01/18 12/01/18 History Patient History Social History Current Living Situation: Spouse Feels Safe at Home: Yes Smoking Status: Former smoker Hx Alcohol Use: Yes Alcohol type: hard liquor Alcohol Intake Frequency: holidays/special occasions only Hx Substance Use: No Beliefs That Will Affect Care: None Visual Impairment: No Limitations Physical Exam 2 Vital Signs (Past 24 Hours): Last Vital Signs Temp 39.4 C H 12/01/18 13:04 Pulse 76 12/01/18 16:11 Resp 17 12/01/18 16:11 BP 121/68 12/01/18 16:11 Pulse Ox 93 12/01/18 16:11 Currently he is awake and alert in no distress with normal affect is HEENT exam is grossly normal without trauma. His neck is supple he is in no respiratory distress. His blood pressure and pulse are normal. His abdomen is mildly distended but soft and nontender. His extremities are warm without rash and he is not diaphoretic Results & Data Laboratory Results Please see HPI for abnormal laboratories including liver function and lipase. Diagnostic Findings His CAT scan does show evidence of gallbladder distention with mild edema. I do not see significant stones or stones in the common bile duct.
--- NOTE | 2018-12-01 18:11 | History & Physical Report ---
Date of Service December 01, 2018 Assessment & Plan (1) Acute cholecystitis: Patient looks like he is acute gallstone cholecystitis and pancreatitis he was seen in consultation by Dr. Elizondo in the emergency department and MRCP and possible ERCP is planned the patient is on Zosyn therapy and blood cultures were obtained he does not have an elevated white count only has minor pain on exam (2) Gallstone pancreatitis: Patient has elevation of his lipase on admission to 4000 126 this is likely from an obstructed common bile duct stone or other issue obstructing common bile duct and MRCP and ERCP is pending we will trend his lipase keep him n.p.o. with parenteral pain and antiemetics Patient was hydrated cautiously given his history of coronary artery disease and aortic stenosis disease( previously mild) (3) Hypothyroid: Patient is typically on thyroid medicine this will be converted to parenteral Synthroid at 50% dose reduction (4) Diabetes: Typically take patient typically takes Januvia this will be held and he will be up on insulin sliding scale while he is n.p.o. (5) Hx of heart bypass surgery: Patient had a cardiac catheterization in 2016 with any significant obstruction and his aortic stenosis was not severe at that time he is not had any symptoms of heart failure chest pain over the last few weeks. His aspirin is held and his metoprolol will be changed from 50 twice daily orally to 5 mg every 6 IV. (6) Mild aortic stenosis: (7) Arm pain, left: Patient has a sling in place is to be maintained (8) DVT prophylaxis: Patient with SCDs at this time (9) History of prostate cancer: History of Present Illness Primary Care Provider: YANETH Kelly Patient presents to the ER with shortness of breath and high fever. He was initially complaining of some change in his urine retrospectively this is probably due to elevated bilirubin making his urine more maciej colored. Patient was discovered to have what appears to be acute cholelithiasis of pancreatitis from possible common bile duct obstruction this was noted on CT scan of the abdomen. The patient was given Zosyn therapy. The patient had surgical and gastroenterological consultations in the ER. Be placed on Zosyn and continued n.p.o. IV fluids MRCP is pending at the time of admission with possible ERCP on 12/02 and surgical evaluation for possible cholecystectomy if needed. Allergies Allergy/AdvReac Type Severity Reaction Status Date / Time No Known Allergies Allergy Unknown Verified 12/01/18 14:10 Home Medications Home Medications Medication Instructions Recorded Confirmed Type aspirin [Aspirin Low Dose] 81 mg PO QAM 10/28/18 12/01/18 History atorvastatin 20 mg PO PM 10/28/18 12/01/18 History cholecalciferol (vitamin D3) 4,000 unit PO QAM 10/28/18 12/01/18 History [Vitamin D3] furosemide 20 mg PO QAM 10/28/18 12/01/18 History levothyroxine 75 mcg PO QAM 10/28/18 12/01/18 History lorazepam 0.5 mg PO AMPM 10/28/18 12/01/18 History metoprolol tartrate 50 mg PO AMPM 10/28/18 12/01/18 History omeprazole 40 mg PO QAM 10/28/18 12/01/18 History pregabalin [Lyrica] 50 mg PO AMPM 10/28/18 12/01/18 History sitagliptin [Januvia] 100 mg PO QPM 10/28/18 12/01/18 History tamsulosin 0.4 mg PO QPM 10/28/18 12/01/18 History solifenacin [Vesicare] 10 mg PO QAM 12/01/18 12/01/18 History Past Med/Surg History Medical History CAD (coronary artery disease) CABG X 3 (2014) Diabetes NIDDM GERD (gastroesophageal reflux disease) CONTROLLED HTN (hypertension) Hearing deficit High cholesterol History of Rascon's esophagus History of prostate cancer SEED IMPLANTS (2007) Hx of cataract Hypothyroid Mild aortic stenosis TAISHA 1.5CM2, MEAN GRADIENT 11.8 PER 05/2016 ECHO Obesity Urinary frequency Urinary urgency Surgical History History of cardiac cath 2016= NO STENTS History of esophagogastroduodenoscopy (EGD) Hx of blepharoplasty Hx of colonoscopy Hx of eye surgery "TEAR DUCTS" Hx of heart bypass surgery CABG X 3 (2014) Hx of tooth extraction Social History Current Living Situation: Spouse Feels Safe at Home: Yes Smoking Status: Former smoker Hx Alcohol Use: Yes Alcohol type: hard liquor Alcohol Intake Frequency: holidays/special occasions only Hx Substance Use: No Beliefs That Will Affect Care: None Visual Impairment: No Limitations Review of Systems ROS: well nourished well developed. No double vision blurry vision No problems with speech or swallowing No palpitations, chest pain or pressure No Wheezing the patient did feel short of breath and his fever was up Mild right upper quadrant abdominal pain mild nausea without vomiting or change in his stool habits No burning urine darkening of urine color No new focal joint pain or muscle pain has persistent left shoulder pain and is wearing a sling No skin rashes or oral lesions No unusual bruising or bleeding No focused back pain or numbness or loss of strength No changes in memory or confusion Physical Exam 2 Vital Signs (Past 24 Hours): Last Vital Signs Temp 39.4 C H 12/01/18 13:04 Pulse 77 12/01/18 17:20 Resp 17 12/01/18 17:20 BP 134/66 12/01/18 17:20 Pulse Ox 91 12/01/18 17:20 The patient appeared well nourished and normally developed. He is only with mild discomfort Vital signs as documented. Head exam is unremarkable. No scleral icterus or corneal arcus noted Neck is without jugular venous distension, thyromegaly, or lymphademopathy Lungs are clear to auscultation and percussion. Cardiac exam reveals Rhythm is regular. First and second heart sounds normal. Systolic ejection murmur heard in aortic position Abdominal exam reveals normal bowel sounds, no masses, no organomegaly is monitored minorly tender in the right upper quadrant no acute abdomen or guarding is noted Extremities are mildly edematous which is chronic for him and both pedal pulses are normal. Neurologic exam is A&Ox3, no focal deficits, strength is equal bilateral Skin is warm Dry without bruises or lesions Results & Data Diagnostic Findings CTA and CT abd pelvis IMPRESSION: 1. Streak and motion compromised examination. 2. There is no evidence of central pulmonary embolus in the main, lobar, or proximal segmental pulmonary arteries. Evaluation of the peripheral branches is severely compromised by streak and motion artifact. 3. Findings are consistent with acute cholecystitis. Surgical consultation is advised. 4. Cardiomegaly and mild emphysema. 5. There are patchy airspace opacities at both lung bases, left greater than left. The appearance suggests a mild infectious/inflammatory pneumonitis. Clinical correlation will be required. 6. There are mildly distended and fluid-filled loops of small bowel in the right mid abdomen. There is no evidence of mechanical obstruction, and this may represent ileus secondary to cholecystitis. Clinical correlation will be required. 7. Mild to moderate colonic diverticulosis without CT evidence of acute diverticulitis.
[2018-12-01] MEDS ORDERED: GLUCAGON FOR INJ 1 MG VIAL SQ PRN (20:00)
[2018-12-01] MEDS ORDERED: ONDANSETRON INJ 2 MG/ML 2 ML VIAL IV PRN (20:00)
[2018-12-01] MEDS ORDERED: CARBOHYDRATES FOR HYPOGLYCEMIA PO PRN (20:00)
[2018-12-01] MEDS ORDERED: DEXTROSE 50% 50 ML SYRINGE IV PRN (20:00)
[2018-12-01] MEDS ORDERED: LORazepam 0.5 MG/1 ML VIAL IV PRN (20:00)
[2018-12-01] MEDS ORDERED: MoRPHine SULFATE 2 MG/ML CARP IV PRN (20:00)
[2018-12-01] MEDS ORDERED: PIPERACILLIN/TAZOBACTAM 4.5 GM in DEXTROSE 5% 100 ML IV STA (20:00)
[2018-12-01] MEDS ORDERED: GLUCOSE 40% GEL 15 GM TUBE PO PRN (20:00)
[2018-12-01] MEDS ORDERED: INSULIN ASPART 100 UNITS/ML 3 ML PEN SC SCH (20:00)
[2018-12-01] MEDS ORDERED: GLUCOSE 10 TABS/TUBE PO PRN (20:00)
[2018-12-01] MEDS ORDERED: SODIUM CHLORIDE 0.9% 1000ML 1,000 ML IV SCH (20:00)
--- NOTE | 2018-12-01 20:19 | Emergency Department Note ---
ED Visit Note I have personally seen and evaluated the patient with the PA. I agree with the diagnosis and management decisions and have been personally involved in the case. Patient has mild tenderness to the right epigastric region on exam. Laboratory work was reviewed and is concerning for biliary obstruction. CT scan of the chest and abdomen was performed and is concerning for an acute cholecystitis. This is supported by his laboratory work. IV Zosyn was administered. Case was discussed with the hospitalist service will evaluate for further management. Please see YANETH Naylor's notes for further details of the history, physical and visit. .
[2018-12-01] MEDS ORDERED: PHARMACY GLYCEMIC MGMT CONSULT PRN (20:39)
[2018-12-01] MEDS: PIPERACILLIN/TAZOBACTAM 3.375 GM in DEXTROSE 5% 100 ML IV SCH (23:41)
[2018-12-01] MEDS: INSULIN ASPART 100 UNITS/ML 3 ML PEN SC SCH (23:48)
[2018-12-01] MEDS: METOPROLOL TARTRATE 1 MG/ML VIAL IV SCH (23:55)
[2018-12-02] MEDS: POTASSIUM CHLORIDE 10 MEQ in D5W AND 1/2NSS 1,000 ML IV SCH ×3 (03:20→21:42)
--- NOTE | 2018-12-02 05:59 | Progress Note ---
Date of Service December 02, 2018 Assessment & Plan (1) Gallstone pancreatitis: am labs and MRCP report pending cont NPO- possible lap erlin/ ? ERCP later today Subjective no distress, vitals stable afeb MRCP done around 2 am 12/02 Physical Exam 2 Vital Signs (Past 24 Hours): Last Vital Signs Temp 36.7 C 12/02/18 03:32 Pulse 74 12/02/18 03:32 Resp 18 12/02/18 03:32 BP 178/78 H 12/02/18 03:32 Pulse Ox 92 12/02/18 03:32 no acute chgs
[2018-12-02] MEDS: METOPROLOL TARTRATE 1 MG/ML VIAL IV SCH ×4 (06:26→23:54)
[2018-12-02] MEDS: INSULIN ASPART 100 UNITS/ML 3 ML PEN SC SCH ×4 (06:27→21:45)
[2018-12-02] MEDS: PIPERACILLIN/TAZOBACTAM 3.375 GM in DEXTROSE 5% 100 ML IV SCH ×3 (06:29→21:48)
--- NOTE | 2018-12-02 06:44 | Magnetic Resonance Report ---
MR MRCP CLINICAL HISTORY: Acute cholecystitis. Possible common bile duct calculus. COMPARISON STUDY: CT scan dated 12/01/2018 FINDINGS: The gallbladder is distended with mild pericholecystic edema, and mild gallbladder wall thickening.. Tiny gallbladder calculi are suspected. There is no evidence for common bile duct dilatation. There a re no common bile duct filling defects. There is no intrahepatic biliary ductal dilatation. There is no pancreatic ductal dilatation. Incidental note is made of left renal cysts. IMPRESSION: 1. Normal caliber common bile duct and pancreatic duct 2. No common bile duct calculi identified 3. Distended gallbladder, with mild wall thickening.. Tiny gallstones. Mild pericholecystic edema. Th e findings are viewed as suspicious for acute cholecystitis. Electronically signed by: Ricardo Rogers M.D. 12/02/2018 6:43 AM
[2018-12-02 07:31] LABS: Hemoglobin 14.6 g/dL (14.0-18.0); Mean Corpuscular Hgb Conc 33.2 g/dL (32-36); Mean Platelet Volume 10.9 fL (7.4-10.4); Platelet Count 112 K/uL (130-400); RDW Coefficient of Variation 13.5 % (11.5-14.5); RDW Standard Deviation 46.6 fL (36.4-46.3); Red Blood Count 4.63 M/uL (4.7-6.1); White Blood Count 7.62 K/uL (4.8-10.8)
[2018-12-02 07:42] LABS: INR 1.3 (0.9-1.1); Partial Thromboplastin Ratio 1.1; Partial Thromboplastin Time 29.4 Seconds (21.0-31.0)
[2018-12-02 07:59] LABS: Albumin Level 2.7 gm/dl (3.4-5.0); BUN Creatinine Ratio 12.7 (10-20); Calcium 8.3 mg/dl (8.5-10.1); Est GFR (African American) 53.8; Est GFR (Non-African American) 46.5; Potassium 3.3 mmol/L (3.5-5.1)
[2018-12-02 08:04] LABS: Albumin Globulin Ratio 0.8 (0.9-2); Bilirubin,Total 2.6 mg/dl (0.2-1); Globulin 3.2 gm/dl (2.5-4.0); Total Protein 5.9 gm/dl (6.4-8.2)
[2018-12-02 08:32] LABS: Estimated Average Glucose 131 mg/dl
--- NOTE | 2018-12-02 08:43 | Gastrointestinal Consultation ---
Date of Consultation December 02, 2018 Assessment & Plan (1) Gallstone pancreatitis: Present on Admission?: Yes (2) Acute cholecystitis: Pt is a 88 y/o male presented w fever, chills, R sided abd pain, upon evaluation, noted to have elevated LFTs, lipase and abd imaging (CT, MRCP) consistent w acute cholecystitis and tiny gallstones; but no signs of CBD/ pancreatic duct dilation and no CBD stone. LFTs and Lipase decreasing today. VS stable, no signs of guarding or acute abdomen. - No plans for ERCP. Spoke w Dr. Elizondo, discussed about possibly doing intra op cholangiogram at time of pt's lap cholecystectomy - Pls keep pt on NPO, IVF, IV antibiotics. - Monitor LFTs - Start Miralax 17g PO once daily for ileus; repeat KUB in AM. Present on Admission?: Yes Supervising Physician Co-Signing Physician Notes I have performed a history and physical examination of this patient and reviewed the electronic medical record. Specifically, on physical examination there is mild epigastric tenderness. MRCP shows normal ducts and small stones in the GB. Recommend lap erlin with OR cholangiogram. I have discussed the case with YANETH Luke. The above note reflects my findings, conclusions, and recommendations. Ish Swain MD History of Present Illness Reason for Consultation: Possible choledocholithiasis, needing ERCP Requesting Physician: Justyn De Los Santos MD Attending Physician: Dr. Ish Swain History of Present Illness Pt is a 88-year-old male w PMHx of dyslipidemia, HTN, GERD, DM II, BPH, who presented to the emergency department via EMS with complaint of fevers and chills that started yesterday. He's been having intermittent R sided abd pain for a few weeks. Yesterday took couple of bites of chilli and felt worsening abd pain and also started to have fever and chills. He denies associated nausea , vomiting. Reports last BM 2 days ago, usually uses stool softeners at home. Upon evaluation, labs showed no leukocytosis, H/H stable, LFTs are noted to be elevated: Tbili 5, AST/ALT 300s, Alk phos 300, Lipase 4900. Abdominal imaging w CT scan initially showed signs of acute cholecystitis and possible ileus. MRCP obtained as follow up which showed normal caliber bile duct and pancreatic duct , no signs of CBD stone, + tiny gallstones and acute cholecystitis. Overnight he 's received IV antibx, currently on Zosyn, IVF resuscitated. He did spike a temp to 39.4C around 1P yesterday but currently afebrile, BP, HR all stable. His LFTs and Lipase are all decreased today. He reports no n/v, overnight, R sided abd pain is about same. Abd soft, BS present, no guarding. Allergies Allergy/AdvReac Type Severity Reaction Status Date / Time No Known Allergies Allergy Unknown Verified 12/01/18 14:10 Home Medications Home Medications Medication Instructions Recorded Confirmed Type aspirin [Aspirin Low Dose] 81 mg PO QAM 10/28/18 12/01/18 History atorvastatin 20 mg PO PM 10/28/18 12/01/18 History cholecalciferol (vitamin D3) 4,000 unit PO QAM 10/28/18 12/01/18 History [Vitamin D3] furosemide 20 mg PO QAM 10/28/18 12/01/18 History levothyroxine 75 mcg PO QAM 10/28/18 12/01/18 History lorazepam 0.5 mg PO AMPM 10/28/18 12/01/18 History metoprolol tartrate 50 mg PO AMPM 10/28/18 12/01/18 History omeprazole 40 mg PO QAM 10/28/18 12/01/18 History pregabalin [Lyrica] 50 mg PO AMPM 10/28/18 12/01/18 History sitagliptin [Januvia] 100 mg PO QPM 10/28/18 12/01/18 History tamsulosin 0.4 mg PO QPM 10/28/18 12/01/18 History solifenacin [Vesicare] 10 mg PO QAM 12/01/18 12/01/18 History Patient History Medical History CAD (coronary artery disease) CABG X 3 (2014) Diabetes NIDDM GERD (gastroesophageal reflux disease) CONTROLLED HTN (hypertension) Hearing deficit High cholesterol History of Rascon's esophagus History of prostate cancer SEED IMPLANTS (2007) Hx of cataract Hypothyroid Mild aortic stenosis TAISHA 1.5CM2, MEAN GRADIENT 11.8 PER 05/2016 ECHO Obesity Urinary frequency Urinary urgency Surgical History H/O shoulder surgery left. a-line and GETA without issues. 10/2018. History of cardiac cath 2016= NO STENTS History of esophagogastroduodenoscopy (EGD) Hx of blepharoplasty Hx of colonoscopy Hx of eye surgery "TEAR DUCTS" Hx of heart bypass surgery CABG X 3 (2014) Hx of tooth extraction Social History marital status: Current Living Situation: Spouse Other Information That Helps Us Care for You: No Feels Safe at Home: Yes Safety Concerns: Feels Safe At This Time Smoking Status: Former smoker Hx Alcohol Use: Yes Alcohol type: beer Alcohol Intake Frequency: holidays/ special occasions only Hx Substance Use: No Beliefs That Will Affect Care: None Communication Ability: Effective Review of Systems Constitutional: + fever and + chills Respiratory: no cough and no dyspnea Cardiovascular: no chest pain, no lightheadedness and no edema Gastrointestinal: as per Subjective / HPI and + abdominal pain; no nausea and no vomiting Physical Exam 2 Vital Signs (Past 24 Hours): Last Vital Signs Temp 36.9 C 12/02/18 06:42 Pulse 68 12/02/18 06:42 Resp 18 12/02/18 06:42 BP 136/67 12/02/18 06:42 Pulse Ox 93 12/02/18 06:42 Constitutional: WD/WN, vitals as above well groomed, cooperative and comfortable Eyes: PERRL, conjunctivae normal, anicteric sclerae ENMT: external ear and nose normal, oropharynx normal Respiratory: normal respiratory effort, lungs clear to auscultation Cardiovascular: RRR, no murmur, no edema Gastrointestinal (Abdomen): Inspection/Auscultation: + hypoactive bowel sounds Percussion/Palpation: + abdomen tender (mid R side of abd) and abdomen soft Skin: no rashes, warm and dry no jaundice Neurologic: Motor/Sensory: no asterixis Psychiatric: A+Ox3, euthymic affect Lymphatic: no lymphedema Results & Data Laboratory Results Laboratory Results - last 48 hr 12/01/18 12/01/18 12/01/18 13:15 13:39 13:39 WBC 10.02 RBC 4.68 L Hgb 15.0 Hct 44.6 MCV 95.3 MCH 32.1 MCHC 33.6 RDW Std Deviation 46.2 RDW Coeff of Malcolm 13.5 Plt Count 125 L MPV 11.0 H Immature Gran % (Auto) 0.3 Neut % (Auto) 87.2 Lymph % (Auto) 4.4 Day % (Auto) 7.9 Eos % (Auto) 0.1 Baso % (Auto) 0.1 Immature Gran # (Auto) 0.03 H Neut # (Auto) 8.74 H Lymph # (Auto) 0.44 L Day # (Auto) 0.79 H Eos # (Auto) 0.01 Baso # (Auto) 0.01 PT INR APTT PTT Ratio Sodium 139 Potassium 3.5 Chloride 106 Carbon Dioxide 24 Anion Gap 9.0 BUN 22 H Creatinine 1.61 H Est Cr Clr Drug Dosing 36.9 Est GFR ( Amer) 43.9 Est GFR (Non-Af Amer) 37.9 BUN/Creatinine Ratio 13.8 Glucose 166 H POC Glucose Estimat Average Glucose Hemoglobin A1c Lactate Calcium 8.5 Total Bilirubin 5.8 H AST 319 H ALT 388 H Alkaline Phosphatase 239 H Total Protein 5.9 L Albumin 3.0 L Globulin 2.9 Albumin/Globulin Ratio 1.0 Lipase Procalcitonin Urine Color Dark Yellow Urine Appearance Cloudy H Urine pH 6.0 Ur Specific [place] 1.012 Urine Protein Negative Urine Glucose (UA) Negative Urine Ketones Negative Urine Blood Negative Urine Nitrite Positive H Urine Bilirubin 1+ H Urine Urobilinogen Negative Ur Leukocyte Esterase Trace H Urine WBC (Auto) 5-10 H Urine RBC (Auto) 0-4 U Hyaline Cast (Auto) 0 U Epithel Cells (Auto) 0-5 Urine Bacteria (Auto) 4+ H Influenza Type A Ag Influenza Type B Ag 12/01/18 12/01/18 12/01/18 13:39 13:39 13:39 WBC RBC Hgb Hct MCV MCH MCHC RDW Std Deviation RDW Coeff of Malcolm Plt Count MPV Immature Gran % (Auto) Neut % (Auto) Lymph % (Auto) Day % (Auto) Eos % (Auto) Baso % (Auto) Immature Gran # (Auto) Neut # (Auto) Lymph # (Auto) Day # (Auto) Eos # (Auto) Baso # (Auto) PT INR APTT PTT Ratio Sodium Potassium Chloride Carbon Dioxide Anion Gap BUN Creatinine Est Cr Clr Drug Dosing Est GFR ( Amer) Est GFR (Non-Af Amer) BUN/Creatinine Ratio Glucose POC Glucose Estimat Average Glucose Hemoglobin A1c Lactate 3.2 H* Calcium Total Bilirubin AST ALT Alkaline Phosphatase Total Protein Albumin Globulin Albumin/Globulin Ratio Lipase 4926 H Procalcitonin 1.65 H Urine Color Urine Appearance Urine pH Ur Specific [place] Urine Protein Urine Glucose (UA) Urine Ketones Urine Blood Urine Nitrite Urine Bilirubin Urine Urobilinogen Ur Leukocyte Esterase Urine WBC (Auto) Urine RBC (Auto) U Hyaline Cast (Auto) U Epithel Cells (Auto) Urine Bacteria (Auto) Influenza Type A Ag Influenza Type B Ag 12/01/18 12/01/18 12/01/18 14:00 20:25 23:49 WBC RBC Hgb Hct MCV MCH MCHC RDW Std Deviation RDW Coeff of Malcolm Plt Count MPV Immature Gran % (Auto) Neut % (Auto) Lymph % (Auto) Day % (Auto) Eos % (Auto) Baso % (Auto) Immature Gran # (Auto) Neut # (Auto) Lymph # (Auto) Day # (Auto) Eos # (Auto) Baso # (Auto) PT INR APTT PTT Ratio Sodium Potassium Chloride Carbon Dioxide Anion Gap BUN Creatinine Est Cr Clr Drug Dosing Est GFR ( Amer) Est GFR (Non-Af Amer) BUN/Creatinine Ratio Glucose POC Glucose 107 H 91 Estimat Average Glucose Hemoglobin A1c Lactate Calcium Total Bilirubin AST ALT Alkaline Phosphatase Total Protein Albumin Globulin Albumin/Globulin Ratio Lipase Procalcitonin Urine Color Urine Appearance Urine pH Ur Specific [place] Urine Protein Urine Glucose (UA) Urine Ketones Urine Blood Urine Nitrite Urine Bilirubin Urine Urobilinogen Ur Leukocyte Esterase Urine WBC (Auto) Urine RBC (Auto) U Hyaline Cast (Auto) U Epithel Cells (Auto) Urine Bacteria (Auto) Influenza Type A Ag Neg for Influ A Influenza Type B Ag Neg for Influ B 12/02/18 12/02/18 12/02/18 06:02 07:12 07:12 WBC 7.62 RBC 4.63 L Hgb 14.6 Hct 44.0 MCV 95.0 MCH 31.5 MCHC 33.2 RDW Std Deviation 46.6 H RDW Coeff of Malcolm 13.5 Plt Count 112 L MPV 10.9 H Immature Gran % (Auto) Neut % (Auto) Lymph % (Auto) Day % (Auto) Eos % (Auto) Baso % (Auto) Immature Gran # (Auto) Neut # (Auto) Lymph # (Auto) Day # (Auto) Eos # (Auto) Baso # (Auto) PT 13.0 H INR 1.3 H APTT 29.4 PTT Ratio 1.1 Sodium Potassium Chloride Carbon Dioxide Anion Gap BUN Creatinine Est Cr Clr Drug Dosing Est GFR ( Amer) Est GFR (Non-Af Amer) BUN/Creatinine Ratio Glucose POC Glucose 108 H Estimat Average Glucose Hemoglobin A1c Lactate Calcium Total Bilirubin AST ALT Alkaline Phosphatase Total Protein Albumin Globulin Albumin/Globulin Ratio Lipase Procalcitonin Urine Color Urine Appearance Urine pH Ur Specific [place] Urine Protein Urine Glucose (UA) Urine Ketones Urine Blood Urine Nitrite Urine Bilirubin Urine Urobilinogen Ur Leukocyte Esterase Urine WBC (Auto) Urine RBC (Auto) U Hyaline Cast (Auto) U Epithel Cells (Auto) Urine Bacteria (Auto) Influenza Type A Ag Influenza Type B Ag 12/02/18 12/02/18 12/02/18 07:12 07:12 07:28 WBC RBC Hgb Hct MCV MCH MCHC RDW Std Deviation RDW Coeff of Malcolm Plt Count MPV Immature Gran % (Auto) Neut % (Auto) Lymph % (Auto) Day % (Auto) Eos % (Auto) Baso % (Auto) Immature Gran # (Auto) Neut # (Auto) Lymph # (Auto) Day # (Auto) Eos # (Auto) Baso # (Auto) PT INR APTT PTT Ratio Sodium 139 Potassium 3.3 L Chloride 108 H Carbon Dioxide 23 Anion Gap 8.0 BUN 17 Creatinine 1.36 Est Cr Clr Drug Dosing 43.0 Est GFR ( Amer) 53.8 Est GFR (Non-Af Amer) 46.5 BUN/Creatinine Ratio 12.7 Glucose 121 H POC Glucose 124 H Estimat Average Glucose 131 Hemoglobin A1c 6.2 H Lactate Calcium 8.3 L Total Bilirubin 2.6 H D AST 146 H ALT 273 H Alkaline Phosphatase 206 H Total Protein 5.9 L Albumin 2.7 L Globulin 3.2 Albumin/Globulin Ratio 0.8 L Lipase 1007 H Procalcitonin Urine Color Urine Appearance Urine pH Ur Specific [place] Urine Protein Urine Glucose (UA) Urine Ketones Urine Blood Urine Nitrite Urine Bilirubin Urine Urobilinogen Ur Leukocyte Esterase Urine WBC (Auto) Urine RBC (Auto) U Hyaline Cast (Auto) U Epithel Cells (Auto) Urine Bacteria (Auto) Influenza Type A Ag Influenza Type B Ag
[2018-12-02] MEDS ORDERED: LEVOTHYROXINE SODIUM IV SCH (09:00)
--- NOTE | 2018-12-02 09:08 | History & Physical Bridge Note ---
Date of Service December 02, 2018 History & Physical Bridge Note I have examined the patient, reviewed the History & Physical and in the interval since the performance of the History & Physical I have noted the following changes of clinical significance: no changes noted pt seen and examined r and c of surgery explained to pt including converting to poen procedure lft this am dec towards normal, MRCP normal by reading will proceed with surgery likely pt passed stone ok with GI
[2018-12-02] MEDS ORDERED: ONDANSETRON INJ 2 MG/ML 2 ML VIAL IV PRN (09:11)
[2018-12-02] MEDS ORDERED: ePHEDrine sulfate 50 MG/ML AMP IV PRN (09:11)
[2018-12-02] MEDS ORDERED: HYDROmorphone INJ 1 MG/ML SYRINGE IV PRN (09:11)
[2018-12-02] MEDS ORDERED: ATROPINE SULFATE 0.1 MG/ML 10ML SYR IV PRN (09:11)
[2018-12-02] MEDS ORDERED: fentaNYL citrate 100 MCG/2 ML VIAL IV PRN (09:11)
--- NOTE | 2018-12-02 09:15 | Anesthesiology Consultation ---
Date of Service December 02, 2018 Assessment & Plan (1) Encounter for pre-operative examination: Chart Review Chart Review: Acceptable Risk for Surgery and Patient NOT seen in Pre Admission Testing Consults Requested none History Surgery Operation Date: 12/02/18 07:10 Proposed Procedures p Laparoscopic Cholecystectomy - Dustin Baeza MD, FACS Height/Weight Height: 5 ft 8 in Weight: 96 kg Allergies Allergy/AdvReac Type Severity Reaction Status Date / Time No Known Allergies Allergy Unknown Verified 12/01/18 14:10 Medications Home Medications Medication Instructions Recorded Confirmed Last Taken aspirin [Aspirin Low Dose] 81 mg PO QAM 10/28/18 12/01/18 11/05/18 07:30 atorvastatin 20 mg PO PM 10/28/18 12/01/18 11/05/18 20:00 cholecalciferol (vitamin D3) 4,000 unit PO QAM 10/28/18 12/01/18 11/05/18 07:30 [Vitamin D3] furosemide 20 mg PO QAM 10/28/18 12/01/18 11/05/18 07:30 levothyroxine 75 mcg PO QAM 10/28/18 12/01/18 11/06/18 07:30 lorazepam 0.5 mg PO AMPM 10/28/18 12/01/18 11/06/18 07:30 metoprolol tartrate 50 mg PO AMPM 10/28/18 12/01/18 11/06/18 07:30 omeprazole 40 mg PO QAM 10/28/18 12/01/18 11/05/18 20:00 pregabalin [Lyrica] 50 mg PO AMPM 10/28/18 12/01/18 11/05/18 20:00 sitagliptin [Januvia] 100 mg PO QPM 10/28/18 12/01/18 11/05/18 20:00 tamsulosin 0.4 mg PO QPM 10/28/18 12/01/18 11/05/18 20:00 solifenacin [Vesicare] 10 mg PO QAM 12/01/18 12/01/18 Unknown Active Medications Generic Name Dose Route Start Last Admin Trade Name Freq PRN Reason Stop Dose Admin Piperacillin Sod/Tazobactam 115 mls @ 28.75 mls/hr 12/01/18 22:00 12/02/18 06 :29 Sod 3.375 gm/ Dextrose IV 12/11/18 21:59 28.8 mls/hr Q8H ED Administration Protocol Potassium Chloride 10 meq/ 1,005 mls @ 100 mls/hr 12/02/18 01:00 12/02/18 03: 20 Dextrose/Sodium Chloride IV 01/01/19 00:59 100 mls/hr .Q10H3M ED Administration Insulin Aspart 0 units 12/02/18 00:00 12/02/18 06:27 Novolog Flexpen SC 12/31/18 19:59 Not Given Q6 ED Metoprolol Tartrate 5 mg 12/02/18 00:00 12/02/18 06:26 Lopressor IV 01/01/19 00:00 Not Given Q6 ED Beta Cayetano Beta Cayetano Taken Within 24 Hours: Yes Past Medical History Medical History CAD (coronary artery disease) CABG X 3 (2014) Diabetes NIDDM GERD (gastroesophageal reflux disease) CONTROLLED HTN (hypertension) Hearing deficit High cholesterol History of Rascon's esophagus History of prostate cancer SEED IMPLANTS (2007) Hx of cataract Hypothyroid Mild aortic stenosis TAISHA 1.5CM2, MEAN GRADIENT 11.8 PER 05/2016 ECHO Obesity Urinary frequency Urinary urgency Past Surgical History Surgical History H/O shoulder surgery left. a-line and GETA without issues. 10/2018. History of cardiac cath 2016= NO STENTS History of esophagogastroduodenoscopy (EGD) Hx of blepharoplasty Hx of colonoscopy Hx of eye surgery "TEAR DUCTS" Hx of heart bypass surgery CABG X 3 (2014) Hx of tooth extraction Past Anesthesia History No Hx of Anesthesia Complications and No Family Hx of Anesthesia Complications History of PONV No Motion Sickness Screening History of Motion Sickness: No Social History Smoking Status: Former smoker Hx Alcohol Use: Yes Alcohol type: beer alcohol intake frequency: holidays/special occasions only Hx Substance Use: No Exercise / Class Metabolic Activity II 4-5 Yardwork/Stairs/Walk up hill Physical Exam Vital Signs Last Vital Signs Temp 36.9 C 12/02/18 06:42 Pulse 68 12/02/18 06:42 Resp 18 12/02/18 06:42 BP 136/67 12/02/18 06:42 Pulse Ox 93 12/02/18 06:42 Testing Electrocardiogram Date: 12/01/18 Findings: + NSR @ (85) Poor data quality, interpretation may be adversely affected Normal sinus rhythm Left axis deviation Inferior infarct (cited on or before 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-2018) Possible Anterior infarct , age undetermined Abnormal ECG When compared with ECG of 30-OCT-2018 12:31, AR interval has decreased Confirmed by YULI JACOBS ([id number]) on 12/01/2018 4:28:03 PM Laboratory Results 12/02/18 07:12 12/02/18 07:12 PT 13.0 Seconds (9.0-12.0) H 12/02/18 07:12 INR 1.3 (0.9-1.1) H 12/02/18 07:12 APTT 29.4 Seconds (21.0-31.0) 12/02/18 07:12 Hemoglobin A1c 6.2 % (4.5-5.6) H 12/02/18 07:12 Urine Color Dark Yellow 12/01/18 13:15 Urine Appearance Cloudy (Clear) H 12/01/18 13:15 Urine pH 6.0 (4.5-7.5) 12/01/18 13:15 Ur Specific [place] 1.012 (1.000-1.030) 12/01/18 13:15 Urine Protein Negative (Negative) 12/01/18 13:15 Urine Glucose (UA) Negative (Negative) 12/01/18 13:15 Urine Ketones Negative (Negative) 12/01/18 13:15 Urine Nitrite Positive (Negative) H 12/01/18 13:15 Ur Leukocyte Esterase Trace (Negative) H 12/01/18 13:15 Urine WBC (Auto) 5-10 /hpf (0-5) H 12/01/18 13:15 Urine RBC (Auto) 0-4 /hpf (0-4) 12/01/18 13:15 U Hyaline Cast (Auto) 0 /lpf (0-5) 12/01/18 13:15 U Epithel Cells (Auto) 0-5 /lpf (0-5) 12/01/18 13:15 Urine Bacteria (Auto) 4+ (Negative) H 12/01/18 13:15 12/02/18 12/02/18 12/01/18 07:28 06:02 23:49 POC Glucose 124 H 108 H 91
[2018-12-02] MEDS ORDERED: fentaNYL citrate 100 MCG/2 ML VIAL ONE ×4 (09:16→10:37)
[2018-12-02] MEDS ORDERED: LIDOCAINE/EPINEPHRINE 1% 20 ML VIAL ONE (09:27)
[2018-12-02] MEDS ORDERED: CONRAY 60% 50 ML VIAL ONE (09:27)
[2018-12-02] MEDS ORDERED: HYDROmorphone INJ 2 MG/ML SYR/VIAL ONE ×2 (10:03→10:37)
[2018-12-02] MEDS ORDERED: ROCURONIUM BROMIDE 10 MG/ML 5 ML VIAL ONE (10:14)
[2018-12-02] MEDS ORDERED: PROPOFOL IV EMULSION 10 MG/ML 20 ML VIAL IV ONE ×2 (10:14→10:57)
[2018-12-02] MEDS ORDERED: NEOSTIGMINE METHYLSULFATE 5 MG/5 ML SYR ONE (10:14)
[2018-12-02] MEDS ORDERED: raNITIdine HCl 25 MG/ML VIAL ONE (10:14)
[2018-12-02] MEDS ORDERED: DEXAMETHASONE SOD INJ 4 MG/ML VIAL ONE (10:14)
[2018-12-02] MEDS ORDERED: GLYCOPYRROLATE 0.2 MG/ML VIAL ONE (10:14)
[2018-12-02] MEDS ORDERED: LIDOCAINE HCL 2% 2 ML VIAL/AMP(20MG/ML) INFIL ONE (10:14)
[2018-12-02] MEDS ORDERED: ONDANSETRON INJ 2 MG/ML 2 ML VIAL ONE (10:14)
[2018-12-02] MEDS ORDERED: LARYING-O-JET KIT (LTA) ONE (10:14)
--- NOTE | 2018-12-02 10:56 | Fluoroscopy Report ---
INTRAOPERATIVE CHOLANGIOGRAM HISTORY: Post cholecystectomy. FLUOROSCOPY TIME: 5 seconds. FINDINGS: Fluoroscopy was provided for an intraoperative cholangiogram status post cholecystectomy. C ontrast was injected through the cystic duct remnant. The common bile duct is normal in course and ca liber. There are no filling defects seen within the common bile duct to suggest a retained stone. Co ntrast extends into the small bowel. There is no intrahepatic bile duct dilatation. IMPRESSION: Fluoroscopy provided for an intraoperative cholangiogram status post cholecystectomy. No filling defects within the common bile duct. Electronically signed by: Lopez Willignham M.D. 12/02/2018 10:55 AM
--- NOTE | 2018-12-02 11:04 | Post Operative Brief Note ---
Immediate Post Op Note v1 Date of Surgery December 02, 2018 Pre & Post Diagnosis Operation Date: 12/02/18 07:10 Pre-Op Diagnosis: ACUTE CHOLECYSTITIS Post-Op Diagnosis: ACUTE CHOLECYSTITIS Procedure Operation Date: 12/02/18 07:10 Actual Procedures p Laparoscopic Cholecystectomy(Not Applicable intraop cholangiogram) - Dustin Baeza MD, FACS Surgeon Dustin Baeza MD, FACS Process Architect b navi JACK Estimated Blood Loss 75 Findings Consistent with Post-Op Diagnosis Drains John-Crespo Drain
[2018-12-02] MEDS ORDERED: ESMOLOL HCL INJ 10 MG/ML 10ML VIAL IV ONE (11:15)
[2018-12-02] MEDS ORDERED: KETOROLAC 30 MG/ML VIAL ONE (11:15)
--- NOTE | 2018-12-02 11:20 | Operative Report ---
Post Operative Report Pre & Post Diagnosis Operation Date: 12/02/18 07:10 Pre-Op Diagnosis: ACUTE CHOLECYSTITIS Post-Op Diagnosis: ACUTE CHOLECYSTITIS Procedure Operation Date: 12/02/18 07:10 Actual Procedures p Laparoscopic Cholecystectomy(Not Applicable) - Dustin Baeza MD, FACS Patient was brought into the operating room theater in the supine position general endotracheal anesthesia the abdomen was shaved and prepped with Betadine solution and properly draped systemic antibiotics he was on board a timeout was had made a small incision supraumbilically sufficient enough to place a Veress needle followed by CO2 which we inflated to 13 followed by 5 mm trocar point of entry expected no intra-identified on direct visualization with preemptive local analgesic 1% Xylocaine with epinephrine small incision in the epigastric and 2 subcostal 5 mm ports were inserted gallbladder could see draped over by omentum we use a letter trocar to elevated which the gallbladder was thick-walled significant long-standing adhesions were encountered pretty much to the whole gallbladder which was strictly adherent to the liver and the gallbladder most of these were taken down by sharp dissection although if you would tear off the Viridiana's capsule and we have some oozing we worked our way to the neck of the gallbladder where that appeared to be free of any significant adhesions we were able to elevated out and identified a structure that was going into the gallbladder consistent with the cystic duct which appeared to be larger than normal as we simply identified the window to the cystic artery we clipped the cystic duct at its takeoff with a 5 mm clip and a 14 Angiocath was placed in the abdominal wall and #4 urethral catheter was inserted small opening in the cystic duct was made a small contents of a little stone was extracted but there was no really bilious drainage appreciated we tried to feed the catheter through this area but really unsuccessful one time we were able then to feed a partially therefore I checked it up a little bit more on the cystic duct where we see a band consistent with 1 of the valves we made a small opening distal to that and was able to plate the catheter without any difficulty however the 5 mm clip stonework tracer would not llanos in place therefore we converted the epigastric trocar to 11 mm and used a 10 mm clips disposable awake free flow of saline into the cystic duct was appreciated contrast was injected serial x-rays taken which showed free flow of the duodenum no real obstruction of the common bile duct we could see some pancreatic duct cystic duct catheter was removed we were able to place 3 clips on the cystic duct at the takeoff or proximal to the common bile duct and this was secure while we are doing this will obviously depend gallbladder which is quite friable cystic duct came undone from the gallbladder itself but we were well away from any structures and we had secured the cystic duct just distal to the small opening where cholangiogram was placed the artery some identified doubly clipped proximally and distally and divided the gallbladder was removed in antegrade fashion very hard was to identify definitive plane since it is quite friable some places in the found we were able to get into the edge of the liver and a Viridiana's capsule had some oozing once we freed all we placed the gallbladder in an Endopouch and taken out intact through the epigastric port subhepatic suprahepatic area was then checked patient's appears satisfactory we checked the gallbladder fossa and some oozing but very minimal I elected to drain this using a 19 En drain that was brought in through the epigastric area taken out through the lateral port place of a plastically attached to the skin edge with 2-0 silk the camera was then subcostal ports to visualize the umbilical entry which no adhesions were identified all trochars were taken out without any difficulty 0 Vicryl suture was used for the umbilical for the epigastric trocar the abdomen 4-0 Monocryl Steri-Strips applied procedure was tolerated well by the patient estimated blood loss 75 cc patient was taken to recovery in good condition addendSteven JACK was present throughout the procedure helped with exposure traction camera work and closing the wounds thank you Surgeon Dustin Baeza MD, FACS Community Health Counselor hollis JACK Estimated Blood Loss 75 Findings Consistent with Post-Op Diagnosis Specimens gallbladder and contents I attest to the content of the Intraoperative Record and any orders documented therein. Any exceptions are noted below.
--- NOTE | 2018-12-02 12:38 | Pharmacy Report ---
Pharmacy Glycemic Short Note 2 - Date of Service December 02, 2018 - Glycemic Short BSG Results (Last 24 hours): 12/01/18 12/01/18 12/01/18 13:39 20:25 23:49 Glucose 166 H POC Glucose 107 H 91 12/02/18 12/02/18 12/02/18 06:02 07:12 07:28 Glucose 121 H POC Glucose 108 H 124 H OUTPATIENT ANTIDIABETIC REGIMEN: * Januvia 100mg PO Q PM * A1c = 6.2% 12/02/18 ASSESSMENT: * 88yo type 2 diabetic admitted for gall-stone pancreatitis * Pt went to OR today for lap erlin, may have received dexamethasone from anesthesia --> watch for rise in BSGs * Currently NPO, however ordered dextrose containing maint IVF's * BSGs at goal at this time. * Given new risk factors for rising BSGs (surgery, pancreatitis, steroids) will add Lantus order utilizing dosing scale should BSG not climb as expected PLAN FOR INPATIENT GLYCEMIC CONTROL: * Hold outpatient oral diabetes medications * Basal insulin * Lantus SQ BID per the following scale: * 0 units if BSG less than 140 * 8 units if BSG 140-180 * 15 units if BSG above 180 * Bolus insulin * NovoLog per scale ACHS or Q6hrs while NPO * Goal Range: Low 110 mg/dL - High 140 mg/dL * Correction Factor: 25 mg/dL/unit * Nutritional / Prandial insulin per carb ratio of 1 unit per 20 grams CHO consumed PLAN FOR DISCHARGE: * A1c is acceptable. May resume Januvia on discharge however dosage should be adjusted if renal fxn not improved.
--- NOTE | 2018-12-02 12:48 | Anesthesiology Progress Note ---
Date of Service December 02, 2018 Anesthesia Post Procedure Vital Signs Vital Signs: Temp Pulse Pulse Pulse Resp BP BP 12/02/18 12:39 88 13 161/86 H 12/02/18 12:38 91 H 26 H 212/103 H 12/02/18 12:35 92 H 16 179/98 H 12/02/18 12:30 95 H 25 H 163/90 H 12/02/18 12:25 93 H 15 167/96 H 12/02/18 12:20 95 H 21 155/97 H 12/02/18 12:15 98 H 25 H 170/89 H 12/02/18 12:10 36.4 C L 99 H 26 H 162/91 H 12/02/18 12:05 98 H 15 160/92 H 12/02/18 12:00 101 H 24 147/85 H 12/02/18 11:55 84 10 L 119/77 12/02/18 11:50 85 10 L 129/68 12/02/18 11:45 85 10 L 127/62 12/02/18 11:40 85 14 129/67 12/02/18 11:35 85 9 L 129/64 12/02/18 11:30 85 8 L 110/71 12/02/18 11:26 36.7 C 86 86 9 L 123/59 L 123/59 L 12/02/18 09:16 37.2 C 70 18 184/89 H 12/02/18 08:55 68 12/02/18 08:50 66 12/02/18 08:45 66 12/02/18 08:40 75 12/02/18 08:35 67 12/02/18 08:30 70 12/02/18 08:25 73 12/02/18 08:20 66 12/02/18 08:15 66 12/02/18 08:10 64 12/02/18 08:05 64 12/02/18 08:00 66 12/02/18 07:55 70 12/02/18 07:50 68 12/02/18 07:45 69 12/02/18 07:40 67 12/02/18 07:35 67 12/02/18 07:30 69 12/02/18 07:25 79 12/02/18 07:20 68 12/02/18 07:15 67 12/02/18 07:10 70 12/02/18 07:05 68 12/02/18 07:00 75 12/02/18 06:55 84 12/02/18 06:50 74 12/02/18 06:45 63 12/02/18 06:42 36.9 C 68 18 136/67 12/02/18 06:40 64 12/02/18 06:35 67 12/02/18 06:30 75 12/02/18 06:25 66 12/02/18 06:20 63 12/02/18 06:15 66 12/02/18 06:10 66 12/02/18 06:05 66 12/02/18 06:00 71 12/02/18 05:55 71 12/02/18 05:50 68 12/02/18 05:45 71 12/02/18 05:40 70 12/02/18 05:35 66 12/02/18 05:30 67 12/02/18 05:25 66 12/02/18 05:20 67 12/02/18 05:15 75 12/02/18 05:10 66 12/02/18 03:32 36.7 C 74 18 178/78 H 12/01/18 23:15 37.0 C 72 18 167/82 H 12/01/18 19:30 36.9 C 74 20 144/86 H 12/01/18 18:50 76 20 126/79 12/01/18 17:20 37.0 C 75 16 126/79 12/01/18 16:11 76 17 121/68 12/01/18 14:54 78 16 120/65 12/01/18 13:55 85 18 102/55 L 12/01/18 13:04 39.4 C H 91 H 16 115/64 Pulse Ox 12/02/18 12:39 94 12/02/18 12:38 93 12/02/18 12:35 92 12/02/18 12:30 92 12/02/18 12:25 93 12/02/18 12:20 93 12/02/18 12:15 92 12/02/18 12:10 93 12/02/18 12:05 94 12/02/18 12:00 93 12/02/18 11:55 96 12/02/18 11:50 94 12/02/18 11:45 94 12/02/18 11:40 96 12/02/18 11:35 96 12/02/18 11:30 95 12/02/18 11:26 96 12/02/18 09:16 92 12/02/18 08:55 12/02/18 08:50 12/02/18 08:45 12/02/18 08:40 12/02/18 08:35 12/02/18 08:30 12/02/18 08:25 12/02/18 08:20 12/02/18 08:15 12/02/18 08:10 12/02/18 08:05 12/02/18 08:00 12/02/18 07:55 12/02/18 07:50 12/02/18 07:45 12/02/18 07:40 12/02/18 07:35 12/02/18 07:30 12/02/18 07:25 12/02/18 07:20 12/02/18 07:15 12/02/18 07:10 12/02/18 07:05 12/02/18 07:00 12/02/18 06:55 12/02/18 06:50 12/02/18 06:45 12/02/18 06:42 93 12/02/18 06:40 12/02/18 06:35 12/02/18 06:30 12/02/18 06:25 12/02/18 06:20 12/02/18 06:15 12/02/18 06:10 12/02/18 06:05 12/02/18 06:00 12/02/18 05:55 12/02/18 05:50 12/02/18 05:45 12/02/18 05:40 12/02/18 05:35 12/02/18 05:30 12/02/18 05:25 12/02/18 05:20 12/02/18 05:15 12/02/18 05:10 12/02/18 03:32 92 12/01/18 23:15 94 12/01/18 19:30 92 12/01/18 18:50 93 12/01/18 17:20 94 12/01/18 16:11 93 12/01/18 14:54 94 12/01/18 13:55 94 12/01/18 13:04 88 L Notes Mental Status: alert / awake / arousable and participated in evaluation Patient Amnestic to Procedure: Yes Nausea / Vomiting: adequately controlled Pain: adequately controlled Airway Patency, RR, SpO2: stable & adequate BP & HR: stable & adequate Hydration State: stable & adequate Anesthetic Complications: no major complications apparent and Pt Satisfied with anesthetic care
[2018-12-02] MEDS: POLYETHYLENE (MIRALAX) 17 GM PACK PO SCH (12:59)
[2018-12-02] MEDS: POTASSIUM CHLORIDE / WTR 10 MEQ/100 ML PLCT IV SCH ×2 (12:59→14:10)
--- NOTE | 2018-12-02 16:47 | Hospitalist Progress Note ---
Date of Service December 02, 2018 Assessment & Plan (1) Acute cholecystitis: Acute gallstone cholecystitis and pancreatitis - consulted general surgery - s/p cholecystectomy 12/02, cholangiogram did not show any filling defects in the CBD - continue Zosyn - procalcitonin was 1.67 on admission (2) Gallstone pancreatitis: Lipase was 4900 on admission, 1000 on repeat. - Patient hydrated cautiously given his history of coronary artery disease and aortic stenosis disease (3) Hypothyroid: Parenteral provided while npo (4) Diabetes: Hold home Januvia, continue insulin sliding scale while he is n.p.o. (5) Hx of heart bypass surgery: Patient had a cardiac catheterization in 2016 with any significant obstruction and his aortic stenosis was not severe at that time he is not had any symptoms of heart failure chest pain over the last few weeks. His aspirin is held and his metoprolol will be changed from 50 twice daily orally to 5 mg every 6 IV. - will restart aspirin when ok with surgery and metoprolol po tomorrow. (6) Mild aortic stenosis: (7) Arm pain, left: Patient has a sling in place is to be maintained, s/p Left Shoulder Arthroscopy, Subacromial Decompression, Distal Clavicle Excision with Rotator Cuff Repair, Extensive debridement(Left) on 11/[address] Kelley (8) DVT prophylaxis: SCDs in the perioperative period. Will start heparin subq this evening (9) History of prostate cancer: Subjective Mr. Caldera is post op from his cholecystectomy. He is having some abdominal pain. He is sob which he said started before the surgery when he started feeling ill. No aches or chills, has been afebrile today. Review of Systems All systems reviewed & are unremarkable except as noted in HPI & below Physical Exam 2 Vital Signs (Past 24 Hours): Last Vital Signs Temp 36.5 C 12/02/18 13:00 Pulse 94 H 12/02/18 15:00 Resp 18 12/02/18 15:00 BP 159/84 H 12/02/18 15:00 Pulse Ox 94 12/02/18 15:00 Physical Exam: General: no distress Eyes: normal inspection, PERLL Respiratory: chest non tender, clear to auscultation, normal breath sounds, no respiratory distress, no accessory muscle use Cardiac: regular rate and rhythm, no rub or gallop, systolic murmur, no edema, no jvd GI/: active bowel sounds, tender abdomen to palpation, soft, non distended Extremities: normal range of motion, normal strength, non tender Neuro/Psych: alert and oriented x 3, normal mood and affect Skin: normal color, dry, dressing dry and intact, steri stips intact Results & Data Laboratory Results Abnormal lab results 12/01/18 12/02/18 12/02/18 Range/Units 20:25 06:02 07:12 RBC 4.63 L (4.7-6.1) M/uL RDW Std Deviation 46.6 H (36.4-46.3) fL Plt Count 112 L (130-400) K/uL MPV 10.9 H (7.4-10.4) fL PT (9.0-12.0) Seconds INR (0.9-1.1) Potassium (3.5-5.1) mmol/L Chloride (98-107) mmol/L Glucose (70-99) mg/dl POC Glucose 107 H 108 H (70-99) Hemoglobin A1c (4.5-5.6) % Calcium (8.5-10.1) mg/dl Total Bilirubin (0.2-1) mg/dl AST (15-37) U/L ALT (12-78) U/L Alkaline Phosphatase (45-117) U/L Total Protein (6.4-8.2) gm/dl Albumin (3.4-5.0) gm/dl Albumin/Globulin Ratio (0.9-2) Lipase (73-393) U/L 12/02/18 12/02/18 12/02/18 Range/Units 07:12 07:12 07:12 RBC (4.7-6.1) M/uL RDW Std Deviation (36.4-46.3) fL Plt Count (130-400) K/uL MPV (7.4-10.4) fL PT 13.0 H (9.0-12.0) Seconds INR 1.3 H (0.9-1.1) Potassium 3.3 L (3.5-5.1) mmol/L Chloride 108 H (98-107) mmol/L Glucose 121 H (70-99) mg/dl POC Glucose (70-99) Hemoglobin A1c 6.2 H (4.5-5.6) % Calcium 8.3 L (8.5-10.1) mg/dl Total Bilirubin 2.6 H D (0.2-1) mg/dl AST 146 H (15-37) U/L ALT 273 H (12-78) U/L Alkaline Phosphatase 206 H (45-117) U/L Total Protein 5.9 L (6.4-8.2) gm/dl Albumin 2.7 L (3.4-5.0) gm/dl Albumin/Globulin Ratio 0.8 L (0.9-2) Lipase 1007 H (73-393) U/L 12/02/18 12/02/18 Range/Units 07:28 11:52 RBC (4.7-6.1) M/uL RDW Std Deviation (36.4-46.3) fL Plt Count (130-400) K/uL MPV (7.4-10.4) fL PT (9.0-12.0) Seconds INR (0.9-1.1) Potassium (3.5-5.1) mmol/L Chloride (98-107) mmol/L Glucose (70-99) mg/dl POC Glucose 124 H 161 H (70-99) Hemoglobin A1c (4.5-5.6) % Calcium (8.5-10.1) mg/dl Total Bilirubin (0.2-1) mg/dl AST (15-37) U/L ALT (12-78) U/L Alkaline Phosphatase (45-117) U/L Total Protein (6.4-8.2) gm/dl Albumin (3.4-5.0) gm/dl Albumin/Globulin Ratio (0.9-2) Lipase (73-393) U/L
[2018-12-02] MEDS ORDERED: MoRPHine SULFATE 4 MG/ML 1 ML CARP\\VIAL IV PRN (17:14)
[2018-12-02] MEDS: INSULIN GLARGINE SOLOSTAR 100 UNITS/ML 3 ML PEN SC SCH (21:43)
[2018-12-02] MEDS ORDERED: HEPARIN SOD 5,000 UNIT/0.5 ML VIAL SQ SCH (22:00)
[2018-12-03] MEDS ORDERED: TAMSULOSIN HCL 0.4 MG CAP PO ONE (03:01)
[2018-12-03] MEDS ORDERED: ACETAMINOPHEN 325 MG TAB ONE (03:04)
[2018-12-03] MEDS: ACETAMINOPHEN 325 MG TAB PO PRN ×2 (03:06→18:48)
[2018-12-03] MEDS: HydrALAZINE HCL 20 MG/ML VIAL IV PRN ×2 (04:11→17:59)
[2018-12-03] MEDS: PIPERACILLIN/TAZOBACTAM 3.375 GM in DEXTROSE 5% 100 ML IV SCH ×3 (05:44→21:12)
[2018-12-03] MEDS: POTASSIUM CHLORIDE 10 MEQ in D5W AND 1/2NSS 1,000 ML IV SCH ×2 (05:44→17:28)
[2018-12-03] MEDS: METOPROLOL TARTRATE 1 MG/ML VIAL IV SCH (05:49)
[2018-12-03 07:36] LABS: Hematocrit (blood only) 41.4 % (42-52); Hemoglobin 14.3 g/dL (14.0-18.0); Mean Corpuscular Hgb Conc 34.5 g/dL (32-36); Mean Corpuscular Volume 93.2 fL (80-100); Mean Platelet Volume 10.7 fL (7.4-10.4); Platelet Count 106 K/uL (130-400); RDW Coefficient of Variation 13.1 % (11.5-14.5); RDW Standard Deviation 44.7 fL (36.4-46.3); Red Blood Count 4.44 M/uL (4.7-6.1); White Blood Count 9.36 K/uL (4.8-10.8)
[2018-12-03] MEDS: INSULIN ASPART 100 UNITS/ML 3 ML PEN SC SCH ×4 (07:52→20:44)
[2018-12-03] MEDS: POLYETHYLENE (MIRALAX) 17 GM PACK PO SCH (07:53)
[2018-12-03 07:56] LABS: Albumin Level 2.6 gm/dl (3.4-5.0); BUN Creatinine Ratio 11.7 (10-20); Calcium 8.3 mg/dl (8.5-10.1); Creatinine Clr Calc Pharmacy 50.5 ml/min; Est GFR (African American) 64.6; Est GFR (Non-African American) 55.7; Potassium 3.6 mmol/L (3.5-5.1)
[2018-12-03 08:01] LABS: Albumin Globulin Ratio 0.8 (0.9-2); Bilirubin,Total 1.7 mg/dl (0.2-1); Globulin 3.4 gm/dl (2.5-4.0)
[2018-12-03] MEDS: PREGABALIN 50 MG CAP PO SCH ×2 (08:31→20:43)
[2018-12-03] MEDS: FUROSEMIDE 20 MG TAB PO SCH (08:32)
[2018-12-03] MEDS: ASPIRIN 81 MG ECTAB PO SCH (08:32)
[2018-12-03] MEDS: CHOLECALCIFEROL 1,000 UNITS TAB PO SCH (08:32)
[2018-12-03] MEDS: METOPROLOL TARTRATE 50 MG TAB PO SCH ×3 (08:32→20:43)
[2018-12-03] MEDS: PANTOprazole 40 MG TAB PO SCH (08:33)
[2018-12-03] MEDS: INSULIN GLARGINE SOLOSTAR 100 UNITS/ML 3 ML PEN SC SCH ×2 (08:33→20:43)
[2018-12-03] MEDS ORDERED: LORazepam 0.5 MG TAB PO SCH (09:00)
[2018-12-03] MEDS: LEVOTHYROXINE SODIUM 75 MCG TABLET PO SCH (09:15)
--- NOTE | 2018-12-03 09:33 | Surgery Progress Note ---
Date of Service December 03, 2018 Assessment & Plan (1) Gallstone pancreatitis: 12/03/18 first POD intraop findings discussed with pt increase diet as tolerated likely d/c pt home in am keep on PO antibiotics on d/c for 4 days ok to restart dvt proph am labs and MRCP report pending cont NPO- possible lap erlin/ ? ERCP later today Subjective feels fine mild epigastric discomfort Physical Exam 2 Vital Signs (Past 24 Hours): Last Vital Signs Temp 37.3 C 12/03/18 02:57 Pulse 81 12/03/18 05:49 Resp 20 12/03/18 02:57 BP 163/84 H 12/03/18 05:49 Pulse Ox 94 12/03/18 02:57 Physical Exam: abd neg leighton drainage minimal serous sang Results & Data Laboratory Results noted
--- NOTE | 2018-12-03 09:38 | XRay Report ---
KUB HISTORY: re-eval ileus COMPARISON: Abdomen and pelvis CT 12/01/2018. FINDINGS: Surgical within the right upper quadrant and a surgical drain consistent with recent cholec ystectomy. Oral contrast is identified within the colon. No dilated loops of bowel to suggest an obst ruction or ileus. Multiple brachytherapy seeds noted within the prostate gland. 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 No renal calculi. No ureteral calculi. No pneumoperitoneum or pneumatosi s. IMPRESSION: 1. Interval cholecystectomy. 2. No dilated loops of bowel to suggest an obstruction or ileus. Electronically signed by: Lopez Willingham M.D. 12/03/2018 9:37 AM
[2018-12-03] MEDS ORDERED: BISACODYL 10 MG SUPP PR PRN (11:07)
--- NOTE | 2018-12-03 14:03 | Pharmacy Report ---
Pharmacy Glycemic Short Note 2 - Date of Service December 03, 2018 - Glycemic Short BSG Results (Last 24 hours): 12/02/18 12/02/18 12/03/18 18:21 20:30 07:26 Glucose 159 H POC Glucose 267 H 221 H 12/03/18 12/03/18 07:29 11:28 Glucose POC Glucose 144 H 153 H OUTPATIENT ANTIDIABETIC REGIMEN: * Januvia 100mg PO Q PM * A1c = 6.2% 12/02/18 ASSESSMENT: 12/03/18 * Glycemic control did deteriorate following OR yesterday. Pt did receive Dexamethasone 4mg IV in OR * BSGs better controlled today with basal/bolus regimen * Dextrose containing IVF's continue * Will continue similar Lantus + Novolog doses today, weight based for mild/ moderate stress (due to good control with Januvia monotherapy and no further steroid orders) 12/02/18 * 88yo type 2 diabetic admitted for gall-stone pancreatitis * Pt went to OR today for lap erlin, may have received dexamethasone from anesthesia --> watch for rise in BSGs * Currently NPO, however ordered dextrose containing maint IVF's * BSGs at goal at this time. * Given new risk factors for rising BSGs (surgery, pancreatitis, steroids) will add Lantus order utilizing dosing scale should BSG not climb as expected PLAN FOR INPATIENT GLYCEMIC CONTROL: * Hold outpatient oral diabetes medications (Januvia) * Basal insulin * Lantus SQ BID per the following scale: * 0 units if BSG less than 140 * 8 units if BSG 140-180 * 15 units if BSG above 180 * Bolus insulin * NovoLog per scale ACHS or Q6hrs while NPO * Goal Range: Low 110 mg/dL - High 140 mg/dL * Correction Factor: 25 mg/dL/unit * Nutritional / Prandial insulin per carb ratio of 1 unit per 12 grams CHO consumed PLAN FOR DISCHARGE: * A1c is acceptable. May resume Januvia on discharge however dosage should be adjusted if renal fxn not improved (adjustment recommended if eGFR < 45)
[2018-12-03] MEDS: HEPARIN SOD 5,000 UNIT/0.5 ML VIAL SQ SCH ×2 (15:03→20:44)
--- NOTE | 2018-12-03 16:04 | Hospitalist Progress Note ---
Date of Service December 03, 2018 Assessment & Plan (1) Acute cholecystitis: Acute gallstone cholecystitis and pancreatitis - consulted general surgery - s/p cholecystectomy 12/02, cholangiogram did not show any filling defects in the CBD - continue Zosyn - per surgery, can switch to po for home x 4 days - procalcitonin was 1.67 on admission (2) Gallstone pancreatitis: Lipase was 4900 on admission and trended down to wnl - Patient hydrated cautiously given his history of coronary artery disease and aortic stenosis disease (3) Hypothyroid: continue home levothyroxine (4) Diabetes: Hold home Januvia, ss, bsgs ac & hs (5) Hx of heart bypass surgery: Patient had a cardiac catheterization in 2016 with any significant obstruction and his aortic stenosis was not severe at that time he is not had any symptoms of heart failure chest pain over the last few weeks. Will restart his aspirin and po metoprolol (6) Mild aortic stenosis: (7) Arm pain, left: Patient has a sling in place is to be maintained, s/p Left Shoulder Arthroscopy, Subacromial Decompression, Distal Clavicle Excision with Rotator Cuff Repair, Extensive debridement(Left) on 11/[address] Kelley (8) HTN (hypertension): Pressures were very high this morning, running 190s systolically. Better control throughout the day since starting po metoprolol again, running 160s-70s/ 90s. Continue IV hydralazine as needed. (9) DVT prophylaxis: SCDs, heparin subq Dispo: transfer to med/surg, no events on monitor, no further need for IV metoprolol. Per PT eval, can return home when discharged with outpatient PT (10) History of prostate cancer: Subjective POD #1. Patient feeling well, up to chair, family at bedside. Review of Systems All systems reviewed & are unremarkable except as noted in HPI & below Physical Exam 2 Vital Signs (Past 24 Hours): Last Vital Signs Temp 36.5 C 12/03/18 15:38 Pulse 73 12/03/18 15:38 Resp 18 12/03/18 15:38 BP 173/90 H 12/03/18 15:38 Pulse Ox 92 12/03/18 15:38 Physical Exam: General: no distress Eyes: normal inspection, PERLL Respiratory: chest non tender, clear to auscultation, normal breath sounds, no respiratory distress, no accessory muscle use Cardiac: regular rate and rhythm, no rub or gallop, no murmur, no edema, no jvd GI/: active bowel sounds, no abd pain or tenderness, soft, non distended Extremities: normal range of motion, normal strength, non tender Neuro/Psych: alert and oriented x 3, normal mood and affect Skin: normal color, dry Results & Data Laboratory Results Abnormal lab results 12/02/18 12/02/18 12/03/18 Range/Units 18:21 20:30 07:26 RBC 4.44 L (4.7-6.1) M/uL Hct 41.4 L (42-52) % Plt Count 106 L (130-400) K/uL MPV 10.7 H (7.4-10.4) fL Glucose (70-99) mg/dl POC Glucose 267 H 221 H (70-99) Calcium (8.5-10.1) mg/dl Total Bilirubin (0.2-1) mg/dl AST (15-37) U/L ALT (12-78) U/L Alkaline Phosphatase (45-117) U/L Total Protein (6.4-8.2) gm/dl Albumin (3.4-5.0) gm/dl Albumin/Globulin Ratio (0.9-2) 12/03/18 12/03/18 12/03/18 Range/Units 07:26 07:29 11:28 RBC (4.7-6.1) M/uL Hct (42-52) % Plt Count (130-400) K/uL MPV (7.4-10.4) fL Glucose 159 H (70-99) mg/dl POC Glucose 144 H 153 H (70-99) Calcium 8.3 L (8.5-10.1) mg/dl Total Bilirubin 1.7 H (0.2-1) mg/dl AST 71 H (15-37) U/L ALT 192 H (12-78) U/L Alkaline Phosphatase 160 H (45-117) U/L Total Protein 6.0 L (6.4-8.2) gm/dl Albumin 2.6 L (3.4-5.0) gm/dl Albumin/Globulin Ratio 0.8 L (0.9-2)
[2018-12-03] MEDS ORDERED: LORazepam 0.5 MG TAB PO PRN ×2 (17:37→17:52)
[2018-12-03] MEDS ORDERED: TAMSULOSIN HCL 0.4 MG CAP PO SCH (21:00)
[2018-12-03] MEDS ORDERED: ATORVASTATIN 20 MG TAB PO SCH (21:00)
[2018-12-04] MEDS: ACETAMINOPHEN 325 MG TAB PO PRN (02:40)
[2018-12-04] MEDS: PIPERACILLIN/TAZOBACTAM 3.375 GM in DEXTROSE 5% 100 ML IV SCH (06:27)
[2018-12-04] MEDS: LEVOTHYROXINE SODIUM 75 MCG TABLET PO SCH (06:28)
[2018-12-04] MEDS: HEPARIN SOD 5,000 UNIT/0.5 ML VIAL SQ SCH (06:28)
[2018-12-04] MEDS: INSULIN GLARGINE SOLOSTAR 100 UNITS/ML 3 ML PEN SC SCH (08:06)
[2018-12-04] MEDS: FUROSEMIDE 20 MG TAB PO SCH (08:07)
[2018-12-04] MEDS: POLYETHYLENE (MIRALAX) 17 GM PACK PO SCH (08:07)
[2018-12-04] MEDS: METOPROLOL TARTRATE 50 MG TAB PO SCH (08:07)
[2018-12-04] MEDS: PANTOprazole 40 MG TAB PO SCH (08:08)
[2018-12-04] MEDS: CHOLECALCIFEROL 1,000 UNITS TAB PO SCH (08:08)
[2018-12-04] MEDS: ASPIRIN 81 MG ECTAB PO SCH (08:09)
--- NOTE | 2018-12-04 08:11 | Surgery Progress Note ---
Date of Service December 04, 2018 Assessment & Plan (1) Gallstone pancreatitis: POD 2 lap erlin seen with Dr. Baeza AM labs pending, should be ok for d/c keep drain at d/c, can be removed along with kern next week in clinic Subjective tolerating diet, kern for overflow Physical Exam 2 Vital Signs (Past 24 Hours): Last Vital Signs Temp 36.6 C 12/04/18 07:04 Pulse 69 12/04/18 07:04 Resp 20 12/04/18 07:04 BP 120/72 12/04/18 07:04 Pulse Ox 91 12/04/18 07:04 Gastrointestinal (Abdomen): Inspection/Auscultation: + abdominal surgical drain present (50 cc overnight); abdomen not distended Percussion/Palpation: abdomen soft
[2018-12-04] MEDS: PREGABALIN 50 MG CAP PO SCH (08:14)
[2018-12-04 08:48] LABS: Hematocrit (blood only) 41.9 % (42-52); Hemoglobin 14.6 g/dL (14.0-18.0); Mean Corpuscular Hgb Conc 34.8 g/dL (32-36); Mean Corpuscular Volume 93.9 fL (80-100); Platelet Count 125 K/uL (130-400); RDW Coefficient of Variation 13.4 % (11.5-14.5); RDW Standard Deviation 46.2 fL (36.4-46.3); Red Blood Count 4.46 M/uL (4.7-6.1); White Blood Count 9.87 K/uL (4.8-10.8)
[2018-12-04] MEDS: INSULIN ASPART 100 UNITS/ML 3 ML PEN SC SCH (08:59)
[2018-12-04 09:46] LABS: Albumin Globulin Ratio 0.7 (0.9-2); Albumin Level 2.6 gm/dl (3.4-5.0); BUN Creatinine Ratio 13.3 (10-20); Bilirubin,Total 1.5 mg/dl (0.2-1); Calcium 8.8 mg/dl (8.5-10.1); Creatinine Clr Calc Pharmacy 50.1 ml/min; Est GFR (African American) 63.9; Est GFR (Non-African American) 55.2; Globulin 3.9 gm/dl (2.5-4.0); Potassium 3.6 mmol/L (3.5-5.1); Total Protein 6.5 gm/dl (6.4-8.2)
[2018-12-04] MEDS ORDERED: INSULIN GLARGINE SOLOSTAR 100 UNITS/ML 3 ML PEN SC STA (10:49)
--- NOTE | 2018-12-04 12:00 | Discharge Summary ---
Addendum entered and electronically signed by YANETH Church 12:23: Addendum (Blank) Addendum December 04, 2018 12:22 E. Coli UTI - Cipro per surgery. Home with Jade to be removed at surgery follow up. Patient was experiencing difficulty emptying his bladder completely before Jade. Original Note: Date of Service December 04, 2018 Admission HPI Per Admitting Provider Patient presents to the ER with shortness of breath and high fever. He was initially complaining of some change in his urine retrospectively this is probably due to elevated bilirubin making his urine more maciej colored. Patient was discovered to have what appears to be acute cholelithiasis of pancreatitis from possible common bile duct obstruction this was noted on CT scan of the abdomen. The patient was given Zosyn therapy. The patient had surgical and gastroenterological consultations in the ER. Be placed on Zosyn and continued n.p.o. IV fluids MRCP is pending at the time of admission with possible ERCP on 12/02 and surgical evaluation for possible cholecystectomy if needed. Principal Diagnosis Cholecystitis Discharge Exam Constitutional WD/WN, vitals as above Respiratory normal respiratory effort, lungs clear to auscultation Cardiovascular RRR, no murmur, no edema Gastrointestinal (Abdomen) normal bowel sounds, soft, nontender, no hepatosplenomegaly Musculoskeletal no cyanosis or clubbing, extremities motor strength 5/5 Skin no rashes, warm and dry Neurologic moves all extremities and awake Psychiatric A+Ox3, euthymic affect Discharge Data Allergies Allergy/AdvReac Type Severity Reaction Status Date / Time No Known Allergies Allergy Unknown Verified 12/01/18 14:10 Consultations 12/01/18 16:43 Consult General Surgery Stat 12/01/18 17:05 ED Decision to Admit Stat 12/01/18 20:00 Consult Case Management - Discharge Planning Routine Consult Gastroenterology Routine Consult General Surgery Routine Procedures Performed Operation Date: 12/02/18 07:10 Actual Procedures p Laparoscopic Cholecystectomy with cholangiogram(Not Applicable) - Dustin Baeza MD, FACS Ordered Studies 12/01/18 14:17 CT angio chest PE protocol Stat 12/01/18 14:30 CT abd pelvis IV con only Stat 12/02/18 00:01 MR MRCP Urgent 12/02/18 09:30 [place] cholangiogram OR Routine Hospital Course (1) Acute cholecystitis: Acute gallstone cholecystitis and pancreatitis - consulted general surgery - s/p cholecystectomy 12/02, cholangiogram did not show any filling defects in the CBD. Surgical specimen was negative for dysplasia or malignancy - Zosyn while inpatient - per surgery - will switch to po cipro for home x 4 days - procalcitonin was 1.67 on admission (2) Gallstone pancreatitis: Lipase was 4900 on admission and trended down to wnl - Patient hydrated cautiously given his history of coronary artery disease and aortic stenosis disease (3) Hypothyroid: continue home levothyroxine (4) Diabetes: Held home Januvia while inpatient and given ss, bsgs ac & hs. Resume Januvia for home (5) Hx of heart bypass surgery: Patient had a cardiac catheterization in 2016 with any significant obstruction and his aortic stenosis was not severe at that time he is not had any symptoms of heart failure chest pain over the last few weeks. Continue aspirin and po metoprolol (6) Mild aortic stenosis: (7) Arm pain, left: Patient has a sling in place is to be maintained, s/p Left Shoulder Arthroscopy, Subacromial Decompression, Distal Clavicle Excision with Rotator Cuff Repair, Extensive debridement(Left) on 11/[address] Kelley (8) HTN (hypertension): Pressures have been as high as 190s systolically. Better controlled over night after receiving a day's worth of his po metoprolol and 1 dose of hydralazine. Asymptomatic. I recommended the patient check his blood pressure at home daily let his doctor know if he is running over 180/100 and to bring a log of his pressures to his next appointment. Will defer to his primary care on further blood pressure managment as he has improved since resuming his normal regimen over the night. (9) DVT prophylaxis: SCDs, heparin subq while inpatient Dispo: to home with home health (10) History of prostate cancer: Total Time Total Time Spent Total Time Spent (In Minutes): geater than 30 minutes Total Time Includes: Examination of the Patient, Discharge Planning and Medication Reconciliation Discharge Plan Discharge Items Patient Disposition: Home - Home Health Services Reason For Visit: ACUTE CHOLECYSTITIS Discharge Diagnosis: laparoscopic cholecystectomy for acute cholecystitis Condition: Good Discharge Goals: Decrease discomfort Activity: Per 'Additional Instructions' section Lifting: No more than 10 pounds Bathing: No limitations Bathing Comment: ok to shower with the drain Driving/Machine Use: Resume 3 days after discharge Non-emergency contact: Surgeon Call non-emergency contact if: you have any medication questions, your pain is not controlled, you have a fever and your temperature is above 101.5 Follow-up/Referrals: Ren Benavides MD [Hospitalist] - Ani Wall CRNP [Primary Care Provider] - 12/08/18 2:00 pm (Please, follow up with Ani WOLFE on SaturdayDecember 08 at 2:00 pm. *If you need to change this appointment, call the office at [phone].) Dustin Baeza MD, FACS [Surgeon] - (Please, follow up at [facility] General Surgery Office with Dr. Baeza. Call to schedule, also ask to make an appt with Urology to have cath removed. *This office is located at [address] [facility] in [place]. If you have any questions, call the office at [phone].) Diet: Regular Addtl Provider Instructions: You should leave the drain and urinary catheter in place until your follow up appointment with surgery. Leave the steri strips in place until they fall off or are removed by surgery While you were in the hospital your blood pressures were running high at times. I recommend you have a home blood pressure cuff and take your blood pressure once a day. Keep a log to take to your doctor. If the top number is consistently over 180 or the bottom number is over 100, call your doctor. Take your incentive spirometer with you when you go home and continue to use it over the next couple of days. It will help to encourage deep breathing to prevent any lung complications. Home health physical/occupational therapy to evaluate and treat Prescriptions: New ciprofloxacin HCl 500 mg tablet 500 mg PO BID Qty: 10 RF: 0 Continue atorvastatin 20 mg Tablet 20 mg PO PM RF: 0 omeprazole 40 mg Capsule,Delayed Release(Dr/Ec) 40 mg PO QAM RF: 0 aspirin [Aspirin Low Dose] 81 mg Tablet,Delayed Release (Dr/Ec) 81 mg PO QAM RF: 0 levothyroxine 75 mcg Tablet 75 mcg PO QAM RF: 0 lorazepam 0.5 mg Tablet 0.5 mg PO AMPM RF: 0 tamsulosin 0.4 mg Capsule 0.4 mg PO QPM RF: 0 metoprolol tartrate 50 mg Tablet 50 mg PO AMPM RF: 0 furosemide 20 mg Tablet 20 mg PO QAM RF: 0 pregabalin [Lyrica] 50 mg Capsule 50 mg PO AMPM RF: 0 sitagliptin [Januvia] 100 mg Tablet 100 mg PO QPM RF: 0 cholecalciferol (vitamin D3) [Vitamin D3] 2,000 unit Capsule 4,000 unit PO QAM RF: 0 solifenacin [Vesicare] 10 mg Tablet 10 mg PO QAM RF: 0 Visit Report Forms: [facility] Stand-Alone Forms: [facility] Discharge Orders: Discharge Order (Routine); Ordered 12/04/18 Ordered By: Marilu Guan Admission Data Admit Date/Time: 12/01/18 18:22 Attending Provider: Justyn De Los Santos Admit Provider: Justyn De Los Santos Primary Care Provider: Ani Wall Other Providers: Cornelius Elizondo ; Marilu Guan ; Justyn De Los Santos ; Ish Swain Service: Surgical Services Other Interventions: Discharge Summary Assessment (RN) Last Done: 12/04/18 12:56
[2018-12-04] MEDS ORDERED: SULFAMETHOXAZOLE/TRIMETHOPRIM DS 800/160MG TAB PO SCH (21:00)
[2018-12-04] MEDS ORDERED: CIPROFLOXACIN 500 MG TAB PO SCH (21:00)
== END 2018-12-04 14:07 | disposition home health service (06) | DRG 417 ==
LOC: ED 12:54 → 2S 18:22 → 3N 12-03 16:06